=== PATIENT | female | born 1955 | race Caucasian/White ===

== ENCOUNTER 2016-09-05 09:12 | Inpatient (IN) ==
[2016-09-05] MEDS ORDERED: SODIUM CHLORIDE 0.9% 500 ML IV STA (09:42)
[2016-09-05] MEDS ORDERED: PANTOPRAZOLE 40 MG VIAL IV STA (09:42)
[2016-09-05] MEDS ORDERED: METOCLOPRAMIDE 10 MG/2 ML VIAL IV STA (09:42)
[2016-09-05] MEDS ORDERED: ONDANSETRON ODT 4 MG TABLET PO STA (09:42)
[2016-09-05] MEDS ORDERED: METOCLOPRAMIDE 10 MG/2 ML VIAL ONE (09:51)
[2016-09-05] MEDS ORDERED: ONDANSETRON ODT 4 MG TABLET PO ONE (09:51)
[2016-09-05] MEDS ORDERED: PANTOPRAZOLE 40 MG VIAL IV ONE (09:51)
[2016-09-05 09:53] LABS: Basophils % 0.3 % (0.0-0.8); Eosinophils # 0.1 10*3/uL (0.0-0.87); Eosinophils % 0.9 % (0.00-10.9); Hematocrit 37.9 VOL% (35.7-47.0); Hemoglobin 12.3 GM/DL (12.0-16.0); Immature Granulocytes % 0.5 %; Immature Granulocytes Absolute 0.04 #; Lymphocytes % 12.4 % (21.3-54.2); Mean Corpuscular HGB Conc 32.5 GM/DL (32-36); Mean Corpuscular Hemoglobin 28 PG (27-34); Mean Corpuscular Volume 85.7 FL (87-102); Mean Platelet Volume 9.1 FL (9.6-12.0); Monocytes # 0.7 10*3/uL (0.11-0.8); Monocytes % 8.8 % (1.7-12.7); Neutrophils # 6.2 10*3/uL (1.4-7.4); Neutrophils % 77.1 % (38.7-73.9); Platelet Count 147 T/CUMM (130-400); Red Blood Count 4.42 MC/CUMM (3.8-5.5); Red Cell Distribution Width 13.7 % (9.3-17.3)
--- NOTE | 2016-09-05 09:55 | Emergency Department Note ---
Arrival - Arrival Chief Complaint: Abdominal / Flank Pain Stated Complaint: SOB, ABD DISTENTION, EXTREME FATIGUE ED Nursing Triage Note: Pt from [facility] c/o feeling tired onset since June 28 - pt was seen and treated and dx with UTI in ER at that time - pt nurse states that she has not had any inprovement - pt started having some abd distention yesterday Mode of Arrival: Wheelchair Time Seen by Provider: 09/05/16 09:42 - History of Present Illness HPI Narrative: This 61-year-old white female presents from her care home with complaints of being profoundly fatigued and tired for the last 3 months. In that interim she was seen here for UTI and treated but this made no difference in her energy level. What precipitates the visit today is the patient has had abrupt and rapidly progressive abdominal distention associated with nausea but no chills, fever, bright red blood per rectum, melena, heartburn, belching, vomiting, diarrhea, or severe pain. The patient purportedly had a bowel movement as late as 2 days ago. History is limited to what the nurse can provide for although the patient is alert and oriented she has a diagnosis of intellectual delay yet no history of any CVA. Currently she appears very uncomfortable but in no medical distress. Onset (ago): month(s) (Patient presents 3 months after onset of symptoms) Date of Last Menstrual Period: hyster Allergies/Adverse Reactions: Allergies Allergy/AdvReac Type Severity Reaction Status Date / Time Sulfa (Sulfonamide Allergy HIVES Verified 06/28/16 10:01 Antibiotics) Home Medications: Home Medications Medication Instructions Recorded Confirmed Type ARIPiprazole [Abilify] 5 mg PO 1700 09/05/16 09/05/16 History Acetaminophen 325 - 650 mg PO Q4H PRN 09/05/16 09/05/16 History Aspirin EC Tab [place] [address]/05/16 09/05/16 History Bisoprol[place] [address]/05/16 09/05/16 History Calcium (Carb)/Vit D 500-200 1 tablet PO 0645,1700 09/05/16 09/05/16 History [Oscal 500 + D] Cholecalciferol (Vitamin D3) 5,000 unit PO 0645 09/05/16 09/05/16 History [Vitamin D3] Colesevelam [Welchol] 625 mg PO BID 09/05/16 09/05/16 History Diclofenac Sodium [Diclofenac 100 mg PO DAILY W/BREAKFAST 09/05/16 09/05/16 History Sodium ER] Diphenoxylate/Atrop 2.5-0.025 1 - 2 tablet PO TID 09/05/16 09/05/16 History [Lomotil Tab] Fluticasone 50 Mcg Nasal [place] 1 spray BOTH NARES 06 PRN 09/05/16 09/05/16 History [Flonase Nasal [place]] Latanoprost [Xalatan] 1 drop BOTH EYES 45 09/05/16 09/05/16 History Loperamide Cap [Imodium Cap] 2 mg PO QID PRN 09/05/16 09/05/16 History Loratadine Tab [Claritin Tab] 10 mg PO 45 PRN 09/05/16 09/05/16 History Methyl Salicylate/Menthol 118 ml TOP DAILY PRN 09/05/16 09/05/16 History [Salonpas Pain Relieving Foam] Moisturizing Cream (Eucerin) 1 applic TOP 0645,1700 09/05/16 09/05/16 History [Eucerin Cream] Omeprazole [Prilosec] 20 mg PO 45 09/05/16 09/05/16 History Ondansetron HCl 4 mg PO Q6H PRN 09/05/16 09/05/16 History Pramoxine 1% Rectal Foam 1 applic TOP TID PRN 09/05/16 09/05/16 History [Proctofoam 1% Foam] Triamcinolone 0.1% Cream [Kenalog 1 applic TOP 45 09/05/16 09/05/16 History 0.1% Cream] buPROPion HCl [Bupropion HCl Sr] 150 mg PO 45 09/05/16 09/05/16 History Review of System - Review of System 12 point system: reviewed and no additional remarkable complaints except as stated - Review of System Constitutional: Present: as per HPI Gastrointestinal: Present: as per HPI Medical,Surgical,& Family Hx - Medical History Cardio: History of: Hypertension, PVD, Cardiovascular Problems (murmur) Other: History of: Miscellaneous Medical Problems (Moderate intillectual delay) - Social History Smoking Status: Never smoker Frequency of Alcohol Use: None Type of Drug Use: None Exam Physical Examination: GENERAL: Elderly white female with obviously distended abdomen. HEENT: Normocephalic. No trauma. Moist mucous membranes. EOMI. PERRLA. ENT NML NECK: Supple. No adenopathy. CARDIAC: Regular. No murmurs. Heart rate 120 CHEST: Clear to auscultation. No respiratory distress. O2 sat 96% ABDOMEN: Distended and firm abdomen with diffuse mild discomfort but significant pain on palpation over the suprapubic area and left lower quadrant. Hypoactive bowel sounds noted . EXTREMITIES: No trauma. Normal ROM. No pedal edema. SKIN: No diaphoresis. No rash. NEURO: Alert. Oriented 3. Motor, sensory, vibratory intact. No focal deficits. Vital Signs: Vital Signs Temperature 98.6 F 09/05/16 13:35 Pulse Rate 80 09/05/16 13:35 Respiratory Rate 20 09/05/16 13:35 Blood Pressure 127/67 09/05/16 13:35 O2 Sat by Pulse Oximetry 97 09/05/16 13:35 Course - Reevaluation(s) Reevaluation #1: Discussed with the patient and her nurse the fact that it would appear she may have something blocking her: And the need for further evaluation treatment in the hospital. - Consultations Consultation #1: Discussed with the hospitalist service who will admit for further evaluation treatment. Results - Labs CBC & BMP: 09/05/16 09:51 09/05/16 09:51 Labs: I reviewed the laboratory and noted the low potassium as well as elevated lactic acid. - Impressions EKG: Sinus tachycardia at [address] interval and right bundle branch block. Nonspecific ST changes with no acute injury pattern noted. 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
[2016-09-05 09:57] LABS: Apearance,Urine CLEAR (Clear); Bilirubin,Urine Negative (Negative); Blood, Urine Negative (Negative); Glucose,Urine (UA) Negative (Negative); Ketones,Urine Negative (Negative); Mucus,Urine Few /LPF (Occasional); Nitrite,Urine Negative (Negative); Protein,Urine 100 MG/DL; RBC,Urine 1 /HPF (0-4); Squamous Epithelial Cell,Urine Occasional /HPF (0-10); Urine Color Amber (Yellow); Urine Specific Gravity 1.025 (1.001-1.035); WBC,Urine 5 /HPF (0-6)
--- NOTE | 2016-09-05 09:58 | XRay Report ---
History is abdominal pain Comparison 09/21/2011 The heart is mildly enlarged. Hilar contours unchanged. Density along the lower mediastinum on the right unchanged possibly a small hiatal hernia Chronic right rib fractures noted There are minimal stranding opacities in the left base similar on the prior study. No consolidation or pneumothorax seen Impression: 1. Mild cardiomegaly 2. Mild left basilar scarring PROCEDURE INTERPRETED AT [facility] DEPARTMENT OF RADIOLOGY Final Report Signed by: Dr. Haritha Green
[2016-09-05] MEDS ORDERED: cefTRIAXone 1,000 MG VIAL ONE (10:19)
[2016-09-05 10:22] LABS: Alanine Aminotransferase 15 U/L (13-56); Albumin 3.1 G/DL (3.4-5.0); Alkaline Phosphatase 30 U/L (45-117); Amylase 46 U/L (25-115); Aspartate Amino Transferase 11 U/L (0-37); Bilirubin,Total < 0.39 MG/DL (0.2-1.0); Blood Urea Nitrogen 13 MG/DL (7-18); Calcium 8.7 MG/DL (8.5-10.1); Free T4 (Free Thyroxine) 0.88 NG/DL (0.76-1.46); Glucose 143 MG/DL (74-106); Potassium 3.1 MMOL/L (3.5-5.1); Sodium 143 MMOL/L (136-145); Total Protein 6.1 G/DL (6.4-8.3); Troponin I Only < 0.015 NG/ML (0.00-0.045)
--- NOTE | 2016-09-05 11:16 | EKG Report ---
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
[2016-09-05] MEDS ORDERED: POTASSIUM BICARB EFFERVESCENT 25 MEQ TABLET PO ONE ×2 (11:22→11:35)
[2016-09-05 11:52] LABS: Lactic Acid 2.6 MMOL/L (0.4-2.0)
--- NOTE | 2016-09-05 12:35 | CT Report ---
History is abdominal distention. 100 cc Omnipaque 350 utilized. There is a tiny 5 mm cyst in the right lobe of the liver The there are all RS several up to 1.2 cm splenic hypodensities which are not simple cysts. There is a small right renal cyst. There is patchy inhomogeneous enhancement in the left kidney with minimal fullness left renal collecting system. There are just under 1 cm celiac nodes. There are several up to 1.0 cm periaortic nodes present. There is diffuse distention of the colon with air and fecal material. Minimal amounts of fluid and stranding present within both paracolic gutters. Pelvis: There is a transition from air-filled to a nondistended colon in the rectosigmoid region. Adjacent to this area there is a 4 cm area of eccentric mass effect with several smaller less than 2 cm fluid densities within it. There is stranding in the pelvic fat diffusely with stranding and minimal amounts of fluid in the presacral region. There are up to 1.7 cm left iliac nodes. There are multiple to 1.4 cm right iliac nodes. Mild areas of nodularity present in the fat surrounding the rectosigmoid colon. Impression: 1. Findings highly suspicious for a colon neoplasm in the rectosigmoid colon with diffuse colon distention and excessive fecal material proximal to this area. There are enlarged left greater than right iliac nodes and nodular opacities and surrounding fat as well. 2. nonspecific mildly enlarged retroperitoneal nodes 3. Several nonspecific splenic hypodensities are not simple cysts. Metastatic disease would have to be considered. 4. Suspected low grade obstruction of the distal left ureter versus pyelonephritis on the left The CT exam was performed using one or more of the following dose reduction techniques: Automated exposure control, adjustment of the mA and/or kV according to patient size, or use of iterative reconstruction technique. PROCEDURE INTERPRETED AT [facility] DEPARTMENT OF RADIOLOGY Final Report Signed by: Dr. Haritha Green
[2016-09-05] MEDS ORDERED: ONDANSETRON 4 MG/2 ML VIAL IV PRN ×2 (14:06→21:01)
[2016-09-05] MEDS ORDERED: ACETAMINOPHEN 325 MG TABLET PO PRN (14:06)
[2016-09-05] MEDS ORDERED: GLUCAGON 1 MG VIAL IM PRN (14:09)
[2016-09-05] MEDS ORDERED: DEXTROSE 50% 25 GM/50 ML VIAL IV PRN (14:09)
[2016-09-05] MEDS ORDERED: POTASSIUM CHLORIDE 20 MEQ TABLET PO PRN (14:10)
--- NOTE | 2016-09-05 14:21 | Hospitalist History & Physical ---
<Ash Valdez - Last Filed: 09/05/16 17:55> Assessment and Plan (1) Abdominal pain Status: Acute Assessment and plan: Consult GI. NPO. IV fluid hydration. prn pain medication. Current Visit: Yes (2) Diabetes Status: Acute Assessment and plan: Accu-Cheks before meals at bedtime. Sliding scale insulin. Hemoglobin A1c. Current Visit: Yes (3) Hypertension Status: Chronic Assessment and plan: Pt. stable now. Current Visit: Yes (4) High cholesterol Status: Chronic Assessment and plan: Lipid panel in a.m. Current Visit: Yes (5) Hiatal hernia Status: Chronic Current Visit: Yes (6) Garcia's esophagus Status: Chronic Current Visit: Yes (7) Chronic colitis Status: Chronic Current Visit: Yes (8) Depression Status: Chronic Current Visit: Yes History of Present Illness Chief complaint: abdominal pain History of present illness: Ms. Odom is a 61 year old white female with a history of hypertension, depression, high cholesterol, diabetes, Garcia's esophagus, chronic colitis that was brought in from the [facility] for evaluation of abdominal pain. Pt is alert but is intellectually delayed. Pt. is escorted by [facility] RN who provides the history for patient. Pt's escort adds that the patient has been complaining of excessive fatigue for the last 3 months. Pt.'s escort reported that the patient had a rapidly progressive distention of the abdomen. She states that the patient complained of abdominal pain yesterday and that her stomach was slightly bloated but this morning it was very enlarged. She also reports that the patient had a small amount of clear jellylike stool since Wednesday. Pt. denies fever, chills, blood per rectum, hematuria, blood in stool or any other complaints at this time in the ED. CT reveals 'findings that are highly suspicious for colon neoplasm of the rectosigmoid colon with diffuse colon distention and excessive fecal matter proximal to this area'. Patient also had 'enlarged left greater than right iliac nodes and nodular opacities and surrounding fat'. Patient will be admitted to the hospitalist service for further evaluation and treatment. GI will be consulted to see the patient. Home Medications Medication Instructions Recorded Confirmed Type ARIPiprazole [Abilify] 5 mg PO 1700 09/05/16 09/05/16 History Acetaminophen 325 - 650 mg PO Q4H PRN 09/05/16 09/05/16 History Aspirin EC Tab 325 mg PO 45 09/05/16 09/05/16 History Bisoprolol Fumarate 5 mg PO 45 09/05/16 09/05/16 History Calcium (Carb)/Vit D 500-200 1 tablet PO 0645,1700 09/05/16 09/05/16 History [Oscal 500 + D] Cholecalciferol (Vitamin D3) 5,[place] [address]/05/16 09/05/16 History [Vitamin D3] Colesevelam [Welchol] 625 mg PO BID 09/05/16 09/05/16 History Diclofenac Sodium [Diclofenac 100 mg PO DAILY W/BREAKFAST 09/05/16 09/05/16 History Sodium ER] Diphenoxylate/Atrop 2.5-0.025 1 - 2 tablet PO TID 09/05/16 09/05/16 History [Lomotil Tab] Fluticasone 50 Mcg Nasal [place] 1 spray BOTH NARES 644 PRN 09/05/16 09/05/16 History [Flonase Nasal [place]] Latanoprost [Xalatan] 1 drop BOTH EYES 45 09/05/16 09/05/16 History Loperamide Cap [Imodium Cap] 2 mg PO QID PRN 09/05/16 09/05/16 History Loratadine Tab [Claritin Tab] 10 mg PO 45 PRN 09/05/16 09/05/16 History Methyl Salicylate/Menthol 118 ml TOP DAILY PRN 09/05/16 09/05/16 History [Salonpas Pain Relieving Foam] Moisturizing Cream (Eucerin) 1 applic TOP 45,0 09/05/16 09/05/16 History [Eucerin Cream] Omeprazole [Prilosec] 20 mg PO 45 09/05/16 09/05/16 History Ondansetron HCl 4 mg PO Q6H PRN 09/05/16 09/05/16 History Pramoxine 1% Rectal Foam 1 applic TOP TID PRN 09/05/16 09/05/16 History [Proctofoam 1% Foam] Triamcinolone 0.1% Cream [Kenalog 1 applic TOP 45 09/05/16 09/05/16 History 0.1% Cream] buPROPion HCl [Bupropion HCl Sr] 150 mg PO 0645 09/05/16 09/05/16 History Allergies Allergy/AdvReac Type Severity Reaction Status Date / Time Sulfa (Sulfonamide Allergy HIVES Verified 06/28/16 10:01 Antibiotics) Medical,Surgical,& Family Hx - Medical History Cardio: History of: Hypertension, PVD, Cardiovascular Problems (murmur) Other: History of: Miscellaneous Medical Problems (Moderate intillectual delay) - Social History Smoking Status: Never smoker Frequency of Alcohol Use: None Type of Drug Use: None Marital Status: Single 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 Absent: chills, fever(s) - EENT Eyes: Absent: blurry vision Ears: Absent: decreased hearing - Cardiovascular Cardiovascular: Absent: chest pain at rest, edema - Respiratory Respiratory: Present: dyspnea on exertion - Gastrointestinal Gastrointestinal: Present: abdominal pain, change in bowel habits. Absent: nausea, vomiting - Genitourinary Genitourinary: Absent: difficulty urinating - Musculoskeletal Musculoskeletal: Absent: limited range of motion - Neurological Neurological: Absent: confusion, dizziness - Psychiatric Psychiatric: Present: anxiety, depression Exam - Constitutional Vitals: Period Temp Pulse Resp BP Sys/Harvey Pulse Ox Last 24 Hr 98.1 F-98.6 F 80-122 16-20 127-168/67-115 96-100 General appearance: no acute distress, over weight - Head Head exam: Present: normal inspection, normocephalic - Eye Eye exam: Present: EOMI. Absent: periorbital swelling Pupils: Present: MARANDA. Absent: dilated - Respiratory Respiratory exam: Present: clear to auscultation bilaterally. Absent: wheezes - Cardiovascular Cardiovascular exam: Present: regular rate and rhythm - GI/Abdominal GI/Abdominal exam: Present: distended, firm, hypoactive bowel sounds, tenderness - Extremities Exam Extremities exam: Present: normal capillary refill, full ROM. Absent: edema - Neurological Exam Neurological exam: Present: alert, oriented X3 - Psychiatric Psychiatric exam: Present: normal affect, normal mood - Skin Skin exam: Present: normal color, warm, dry Results - Labs CBC & BMP: 09/05/16 09:51 09/05/16 17:24 Lab Results: I have reviewed the past 24 hour labs <[email or web address] - Last Filed: 09/06/16 07:36> History of Present Illness History of present illness: Patient seen and examined independently of GERIATRIC NURSING ASSISTANT Valdez, agree with assessment and plan as documented. 61 y/o WF presents with abdominal pain and acute abdominal distention. Patient denies nausea. Patient's medical scientific officer reports multiple colonoscopies over the last few years, performed at [place]. Requested records. On exam abdomen is distended and diffusely tender, no rebound or guarding. CT with concern for neoplasm and obstruction. GI and Surgery consulted. Patient to surgery tonight. Exam - Constitutional Vitals: Period Temp Pulse Resp BP Sys/Harvey Pulse Ox Last 24 Hr 97 F-98.6 F 80-122 12-20 86-171/55-115 94-100 Results - Labs CBC & BMP: 09/06/16 06:24 09/06/16 06:24
[2016-09-05] MEDS ORDERED: SODIUM CHLORIDE 0.9% 1,000 ML IV SCH (14:30)
--- NOTE | 2016-09-05 15:29 | Gastrointestinal Consult Note ---
Assessment and Plan - Time spent with patient Time spent with patient: Greater than 30 minutes (1) Colonic obstruction Status: Acute Current Visit: Yes (2) Other specified counseling Status: Acute Current Visit: Yes History of Present Illness History of present illness: Ms. Odom is a 61 year old female Home Medications Medication Instructions Recorded Confirmed Type ARIPiprazole [Abilify] 5 mg PO 1700 09/05/16 09/05/16 History Acetaminophen 325 - 650 mg PO Q4H PRN 09/05/16 09/05/16 History Aspirin EC Tab 325 mg PO 45 09/05/16 09/05/16 History Bisoprolol Fumarate 5 mg PO 45 09/05/16 09/05/16 History Calcium (Carb)/Vit D 500-200 1 tablet PO 45,0 09/05/16 09/05/16 History [Oscal 500 + D] Cholecalciferol (Vitamin D3) 5,000 unit PO 45 09/05/16 09/05/16 History [Vitamin D3] Colesevelam [Welchol] 625 mg PO BID 09/05/16 09/05/16 History Diclofenac Sodium [Diclofenac 100 mg PO DAILY W/BREAKFAST 09/05/16 09/05/16 History Sodium ER] Diphenoxylate/Atrop 2.5-0.025 1 - 2 tablet PO TID 09/05/16 09/05/16 History [Lomotil Tab] Fluticasone 50 Mcg Nasal [place] 1 spray BOTH NARES 644 PRN 09/05/16 09/05/16 History [Flonase Nasal [place]] Latanoprost [Xalatan] 1 drop BOTH EYES 45 09/05/16 09/05/16 History Loperamide Cap [Imodium Cap] 2 mg PO QID PRN 09/05/16 09/05/16 History Loratadine Tab [Claritin Tab] 10 mg PO 45 PRN 09/05/16 09/05/16 History Methyl Salicylate/Menthol 118 ml TOP DAILY PRN 09/05/16 09/05/16 History [Salonpas Pain Relieving Foam] Moisturizing Cream (Eucerin) 1 applic TOP 0645,1700 09/05/16 09/05/16 History [Eucerin Cream] Omeprazole [Prilosec] 20 mg PO 45 09/05/16 09/05/16 History Ondansetron HCl 4 mg PO Q6H PRN 09/05/16 09/05/16 History Pramoxine 1% Rectal Foam 1 applic TOP TID PRN 09/05/16 09/05/16 History [Proctofoam 1% Foam] Triamcinolone 0.1% Cream [Kenalog 1 applic TOP 64409/05/16 09/05/16 History 0.1% Cream] buPROPion HCl [Bupropion HCl Sr] [place] [address]/05/16 09/05/16 History Allergies Allergy/AdvReac Type Severity Reaction Status Date / Time Sulfa (Sulfonamide Allergy HIVES Verified 06/28/16 10:01 Antibiotics) Medical,Surgical,& Family Hx - Medical History Cardio: History of: Hypertension, PVD, Cardiovascular Problems (murmur) Other: History of: Miscellaneous Medical Problems (Moderate intillectual delay) - Social History Smoking Status: Never smoker Frequency of Alcohol Use: None Type of Drug Use: None Exam - Constitutional Vitals: Period Temp Pulse Resp BP Sys/Harvey Pulse Ox Last 24 Hr 98.1 F-98.6 F 80-122 16-20 127-168/67-115 96-100 Results - Labs CBC & BMP: 09/05/16 09:51 09/05/16 09:51 Note Addendum: PLEASE NOTE -- automatic citation of patient information is unavoidable in this electronic note. I have made a reasonable effort to review the information cited , but it is not a part of my evaluation, impression, or recommendation unless specifically discussed in the dictated text that follows. As well, voice recognition software was used in the creation of this clinical note. Reasonable effort was made to identify and correct gross errors. Despite proofreading, errors in non destructive testing specialist may be present, including nonsense verbiage at times. If you encounter such an error, please contact me at for discussion and correction. -- Fidel Chief complaint: abdominal pain, abnormal radiology History of present illness: This is a new patient, a 61-year-old female seen by consultation for evaluation of abdominal pain. The patient is admitted to the hospitalist service under the care of Dr. Nina with a primary diagnosis of same. The patient was admitted through the emergency department this morning with primary complaint of progressive abdominal distention with nausea and associated abdominal pain. Evaluation at that time revealed mildly elevated lactate but otherwise relatively normal laboratory values and abnormal CT scan with evidence of colonic malignancy. The patient has been started on crystalloid resuscitation along with nausea control. The patient is accompanied by a caregiver provides the majority of the history. She that symptoms began yesterday with acutely progressive abdominal distention, associated abdominal pain, and nausea. This was at its worst own presentation to the emergency department this morning. Distention is still pronounced but may be subjectively better at the moment. The patient generally suffers from chronic diarrhea and requires antidiarrheal medication to control same. Her primary agricultural education instructor is down at [facility] and, by report, the patient has had upper endoscopy in 2014 and colonoscopy, also possibly in 2014. Her caregiver is unaware of the results of the colonoscopy. The patient's mother did have colorectal cancer but we do not know at what age. Patient denies rigors, headache, dizziness, neck pain, visual changes, redness of the eyes, dysphagia, odynophagia, difficulty chewing, chest pain, shortness of breath, weight loss, vomiting, regurgitation, hematemesis, diarrhea, hematochezia, melena, proctalgia, constipation, dysuria, skin changes, temperature regulation issues, flushing, easy bleeding/bruising, mental status change, numbness/weakness in the extremities, yellowing of the eyes/skin, cutaneous eruptions, and other complaints in general. Review of systems: 12 point review of systems was negative except as documented above. Outpatient medications: bupropion, [place] phone, Zofran, Prilosec, Claritin, Imodium, latanoprost, [place] some nasal spray, Lomotil, diclofenac, well call, vitamin D3, calcium with vitamin D, bisoprolol, aspirin, Abilify Inpatient medications: Tylenol, [place], Humalog, Zofran, potassium chloride, normal saline infusion Past Medical History: hypertension, peripheral vascular disease, moderate intellectual delay Social history: negative tobacco. Negative alcohol Family history: mother with colorectal cancer at unknown age Physical examination: Vital Signs: Current vital signs reviewed and documented above. General Appearance: lying in bed. Uncomfortable. Head: Normocephalic. Neck: Palpation of the neck revealed no abnormalities. Eyes: No scleral icterus. No scleral injection. No conjunctival pallor. Oral Cavity: Odor of breath was normal. No drooling was observed. Lips showed no abnormalities. Floor of the mouth showed no abnormalities. Pharynx: Oropharynx was normal. Lungs: Respiration rhythm and depth was normal. Cardiovascular: Heart rate was tachycardic but rhythm wants normal. Abdomen: abdomen was distended and tense. Abdominal palpation revealed mild diffuse tenderness without guarding. Ascites was not discovered. Abdominal auscultation revealed positive bowel sounds that were not high-pitched. Musculoskeletal System: Musculoskeletal system was grossly normal. Neurological: level of consciousness was normal. Speech was normal. Affect was consistent with the reported medical delay. Intellectual Skin: General appearance was normal. Color and pigmentation were normal. No skin lesions. Laboratory: white blood count 8.0, hemoglobin 12.3, hematocrit 37.9, platelets 147, ALT 15, AST 11, bilirubin 0.4, alkaline phosphatase 30, lactate 2.6, amylase 46, lipase 140 Radiology: CT of the abdomen and pelvis, September 05, 2016 -- suspicious for a: neoplasm in the rectal sigmoid colon with diffuse distention and excessive fecal material proximally; enlarged. Nodes and nodular opacities in the surrounding fat; enlarged retroperitoneal nodes; splenic hypo densities not consistent with simple cysts; suspected low-grade obstruction of the distal left ureter Impressions: 1. Colonic obstruction -- findings are consistent with acute obstruction, likely in the left colon. Images do not have the typical radiologic appearance of volvulus, neither does the radiologist report volvulus. Rather, this has the appearance of malignancy. The patient should be NPO at present. Nasogastric decompression could make some positive difference but is less effective than with small bowel obstruction. Some consideration could be given to flexible sigmoidoscopy with attempted stent placement but this is also less effective and higher risk than primary operative intervention. We have consulted general surgery for evaluation and we will follow up with further recommendations pending the outcom of that consultation. 2. Other specified counseling -- The patient was seen for greater than 30 minutes. The patient was counseled for greater than 50% of this time regarding differential diagnosis, likely diagnosis, diagnostic and therapeutic alternatives, risks/benefits/alternatives of medications and procedures, and plan of care generally. The patient expressed understanding and wishes to proceed. Recommendations: -- continued supportive care -- initiate broad-spectrum antibiotic -- consider nasogastric decompression -- nothing by mouth -- general surgery consultation -- thank you for consultation. We will follow with you.
[2016-09-05] MEDS ORDERED: MORPHINE 2 MG/1 ML SYRINGE IV PRN (16:01)
--- NOTE | 2016-09-05 16:37 | General Surgery Consult Note ---
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 This is probably going to be something that is unresectable locally at this time or at least would require an extensive abdominal resection and consultation with urology but I think the best thing to do would be to try to get a tissue diagnosis and also a diverting colostomy and this will be done today with rigid proctoscopy with biopsy of the mass and if for some reason no masses seen and is easily to traverse this area we can hold off on doing a colostomy and just try to place a rectal stent but if the suspicion is confirmed by the proctoscopy and the patient has a malignancy we will do biopsies and go ahead and do a diverting loop colostomy proximal to this through midline incision. This was all discussed with the patient's legal guardian and we will go ahead and proceed today. An NG tube will be placed because there is quite a bit of fluid in the stomach on her CT scan and this will help prevent aspiration with induction. Current Visit: Yes History of Present Illness Chief complaint: Large bowel obstruction History of present illness: Ms. Odom is a 61 year old female admitted with a large bowel obstruction. Per the alf the patient had a colonoscopy within the last 5 years that was reportedly normal. This was done at [facility] by Dr. Morrell. The patient has a very redundant sigmoid colon so is definitely a set up for a sigmoid volvulus intermittently as well. There is no obvious evidence of diverticulitis but there is some obstruction mildly of her left ureter with hydroma side where the mass is protruding out of the colon at the rectosigmoid junction. CT scan also shows some hypodensities in the spleen which could be malignancy. There is some iliac lymphadenopathy worse on the left side. The patient has had a prior hysterectomy and has a large midline incision. Home Medications Medication Instructions Recorded Confirmed Type ARIPiprazole [Abilify] 5 mg PO 1700 09/05/16 09/05/16 History Acetaminophen 325 - 650 mg PO Q4H PRN 09/05/16 09/05/16 History Aspirin EC Tab 325 mg PO 0645 09/05/16 09/05/16 History Bisoprolol Fumarate 5 mg PO 0609/05/16 09/05/16 History Calcium (Carb)/Vit D 500-200 1 tablet PO 0645,1700 09/05/16 09/05/16 History [Oscal 500 + D] Cholecalciferol (Vitamin D3) 5,000 unit PO 45 09/05/16 09/05/16 History [Vitamin D3] Colesevelam [Welchol] 625 mg PO BID 09/05/16 09/05/16 History Diclofenac Sodium [Diclofenac 100 mg PO DAILY W/BREAKFAST 09/05/16 09/05/16 History Sodium ER] Diphenoxylate/Atrop 2.5-0.025 1 - 2 tablet PO TID 09/05/16 09/05/16 History [Lomotil Tab] Fluticasone 50 Mcg Nasal [place] 1 spray BOTH NARES 644 PRN 09/05/16 09/05/16 History [Flonase Nasal [place]] Latanoprost [Xalatan] 1 drop BOTH EYES 0645 09/05/16 09/05/16 History Loperamide Cap [Imodium Cap] 2 mg PO QID PRN 09/05/16 09/05/16 History Loratadine Tab [Claritin Tab] 10 mg PO 45 PRN 09/05/16 09/05/16 History Methyl Salicylate/Menthol 118 ml TOP DAILY PRN 09/05/16 09/05/16 History [Salonpas Pain Relieving Foam] Moisturizing Cream (Eucerin) 1 applic TOP 0645,1700 09/05/16 09/05/16 History [Eucerin Cream] Omeprazole [Prilosec] 20 mg PO 0645 09/05/16 09/05/16 History Ondansetron HCl 4 mg PO Q6H PRN 09/05/16 09/05/16 History Pramoxine 1% Rectal Foam 1 applic TOP TID PRN 09/05/16 09/05/16 History [Proctofoam 1% Foam] Triamcinolone 0.1% Cream [Kenalog 1 applic TOP 45 09/05/16 09/05/16 History 0.1% Cream] buPROPion HCl [Bupropion HCl Sr] 150 mg PO 0645 09/05/16 09/05/16 History Allergies Allergy/AdvReac Type Severity Reaction Status Date / Time Sulfa (Sulfonamide Allergy HIVES Verified 04/02/17 10:01 Antibiotics) Medical,Surgical,& Family Hx - Medical History Cardio: History of: Hypertension, PVD, Cardiovascular Problems (murmur) Other: History of: Miscellaneous Medical Problems (Moderate intillectual delay) - Social History Smoking Status: Never smoker Frequency of Alcohol Use: None Type of Drug Use: None - Constitutional Constitutional: Present: as per HPI - EENT Nose, mouth and throat: Present: as per HPI - Cardiovascular Cardiovascular: Present: as per HPI - Respiratory Respiratory: Present: as per HPI - Gastrointestinal Gastrointestinal: Present: as per HPI - Genitourinary Genitourinary: Present: as per HPI - Musculoskeletal Musculoskeletal: Present: as per HPI - Neurological Neurological: Present: as per HPI - Endocrine Endocrine: Present: as per HPI Hematologic/Lymphatic: Present: as per HPI Exam - Constitutional Vitals: Period Temp Pulse Resp BP Sys/Harvey Pulse Ox Last 24 Hr 98.1 F-98.6 F 80-122 16-20 127-168/67-115 96-100 General appearance: no acute distress, over weight - Head Head exam: Present: normal inspection, normocephalic - Eye Eye exam: Present: EOMI Pupils: Present: MARANDA - ENT ENT exam: Present: normal exam Mouth exam: Present: normal external inspection, normal voice - Neck Neck exam: Present: normal inspection, trachea midline - Respiratory Respiratory exam: Present: clear to auscultation bilaterally. Absent: accessory muscle use, chest wall tenderness - Cardiovascular Cardiovascular exam: Present: tachycardia. Absent: irregular rhythm - GI/Abdominal GI/Abdominal exam: Present: distended, soft - Extremities Exam Extremities exam: Present: normal inspection, normal capillary refill - Neurological Exam Neurological exam: Present: alert, oriented X3 Speech: Present: normal - Skin Skin exam: Present: normal color, warm Results - Labs CBC & BMP: 09/05/16 09:51 09/05/16 09:51 - Diagnostic Findings Procedure: CT Abdomen and Pelvis: image reviewed by me, report reviewed by me ( large bowel obstruction of colon)
[2016-09-05] MEDS: INSULIN LISPRO 100 UNIT/ML SUBCUT SCH ×2 (17:22→22:32)
[2016-09-05] MEDS ORDERED: PHENYLEPHRINE 50 MG/5 ML VIAL ONE (17:51)
[2016-09-05] MEDS ORDERED: LIDOCAINE 2% 5 ML VIAL ONE (17:51)
[2016-09-05] MEDS ORDERED: SUCCINYLCHOLINE 200 MG/10 ML VIAL ONE (17:51)
[2016-09-05] MEDS ORDERED: ROCURONIUM 100 MG/10 ML VIAL IV ONE (17:51)
[2016-09-05] MEDS ORDERED: PROPOFOL 200 MG/20 ML VIAL IV ONE (17:51)
[2016-09-05] MEDS ORDERED: ESMOLOL 100 MG/10 ML VIAL IV ONE (17:51)
[2016-09-05] MEDS ORDERED: PHENYLEPHRINE 1 MG/10 ML SYRINGE IV ONE (17:51)
[2016-09-05 19:34] LABS: Apearance,Urine CLEAR (Clear); Bilirubin,Urine Negative (Negative); Blood, Urine Negative (Negative); Glucose,Urine (UA) Negative (Negative); Ketones,Urine Negative (Negative); Mucus,Urine Occasional /LPF (Occasional); Nitrite,Urine Negative (Negative); Protein,Urine 30 MG/DL; RBC,Urine 4 /HPF (0-4); Squamous Epithelial Cell,Urine Occasional /HPF (0-10); Urine Color Yellow (Yellow); Urine Specific Gravity > 1.060 (1.001-1.035); Urine Urobilinogen < 2.0 EU/DL (0.2-1.0); WBC,Urine 1 /HPF (0-6)
[2016-09-05] MEDS ORDERED: PROMETHAZINE 25 MG/1 ML VIAL IM PRN (21:01)
[2016-09-05] MEDS ORDERED: METHYL SALICYLATE TOP PRN (21:01)
[2016-09-05] MEDS ORDERED: PRAMOXINE 1% RECTAL FOAM 15 GM CAN TOP PRN (21:01)
[2016-09-05] MEDS ORDERED: PROPOFOL 1,000 MG/100 ML BOTTLE IV SCH (21:01)
[2016-09-05] MEDS ORDERED: MENTHOL TOP PRN (21:01)
--- NOTE | 2016-09-05 21:05 | Operative Note ---
Date of procedure: 09/05/16 Pre-op diagnosis: Large bowel obstruction Post-op diagnosis: same (Large bowel obstruction with ischemic colon) Procedure: Preoperative diagnosis Large bowel obstruction Postoperative diagnosis Large bowel obstruction with colonic ischemia Procedures performed 1. Rectal exam under anesthesia with rigid proctoscopy 2. Exploratory laparotomy 3. Complete abdominal lysis of adhesions 4. Total abdominal colectomy with end ileostomy and sigmoid colon mucous fistula 5. Mobilization of the splenic flexure of the colon Findings Rectal exam under anesthesia revealed a firm mass forming lesion which was fixed in the pelvis at about 10 cm and the rigid proctoscope was unable to traverse the lesion. It was unclear if the rectum was twisted because of the lesion or rather the rectosigmoid junction but I was unable to traverse the narrowed area of the rectum with a proctoscope due to the size of the proctoscope and I was also unable to see any mucosal lesions at the level of the obstruction but I could biopsy. Laparotomy was then performed which actually revealed colonic ischemia with near perforation and massive distention of the ascending and transverse colon as well as ischemic changes in the sigmoid colon. There was serosal tearing of the ascending, transverse, and sigmoid colon due to massive distention and ischemic changes. This required total abdominal colectomy with end ileostomy and distal sigmoid colon/proximal rectum mucous fistula for treatment. There was a large piece of preperitoneal mesh that was divided to gain access the abdominal cavity and because of this and prior surgery there were extensive intra-abdominal adhesions that required complete abdominal adhesio lysis. A firm mass forming lesion was noted in the pelvis on laparotomy but there is no easy mass that could be accessed for biopsy and the risk of biopsy and further dissection in this matted pelvic mass felt like it was too risky to justify the benefit to be obtained. A #10 PARKER drain was placed in the pelvis and right paracolic gutter. Complications None apparent Specimen Total abdominal colectomy Blood loss 300 mL Anesthesia GETA Indications Large bowel obstruction with significant abdominal distention and mass on CT scan in the rectum. Description of procedure The patient was taken to the operating room and transferred to the operating table in the supine position. Pressure points were padded and SCDs placed to bilateral lower extremities. General endotracheal anesthesia was administered. The patient was placed in lithotomy position and a Morgan catheter was placed sterilely with concentrated urine output. A timeout was performed and rectal exam under anesthesia was administered. There was a mass in firm area at the tip of my finger on exam and I can feel a severely narrowed area in the rectum at this location but there is no mucosal mass I could feel. It was more of an extrinsic mass compressing this area of the rectum. I attempted a rigid proctoscopy however I was unable to traverse this narrowing and it did not look like a sigmoid volvulus but also was unable to see a mucosal based lesion that I can biopsy. It seems most likely that the rectum was fixed here possibly twisted on itself because of a mass that might be higher up in the rectum where the rectosigmoid consistent with CT scan findings. At this point we took out the proctoscope and place the patient back in the supine position. The abdomen was then prepped chlorhexidine and draped sterilely. New gown and gloves were put on and a timeout was recalled. Preoperative antibiotics were administered. A midline laparotomy incision was made with a scalpel. Electrocautery was used into the abdominal cavity and we encountered here a large piece of preperitoneal permanent mesh which look like polypropylene mesh and Prolene sutures that were holding in place. The Prolene sutures were divided as was the mesh and there were extensive intra-abdominal adhesions and a massively distended colon with ischemic changes on initial entry into the abdominal cavity. There were also some small bowel loops that were stuck to the midline fascia and mesh in the lysis of adhesions was performed with complete abdominal adhesio lysis. The colon was massively distended and had ischemic changes in the transverse and ascending colon with serosal tearing and massive distention near perforation. The sigmoid colon was also ischemic and there was serosal tearing and distention of this area of the colon as well. I was able to palpate a firm matted area in the pelvis that was not easily accessible to biopsy of anything that could be easily seen. The risk of biopsy did not justify any benefit that would be obtained in this acutely ill patient. Once the colon was completely mobilized including mobilization of the splenic flexure using electrocautery and the lesser sac was entered the terminal ileum was divided with a OSCAR stapler and a LigaSure device was used to divide the mesentery starting at the terminal ileum and coming all around the total abdominal colon. The distal transection point was made on a piece of distal sigmoid colon/proximal rectum at the rectosigmoid junction that appeared viable and would still reach the abdominal wall for mucous fistula and the bowel was divided here with a OSCAR stapler as well. I actually had to decompress the colon in order to adequately expose the splenic flexure for mobilization in this area was decompressed with a Bovie electrocautery and then suction was placed into the colon to remove air and stool. This was then sewn up with a pursestring 3-0 Vicryl suture. The bowel was then actually divided at the mid transverse colon and in order to assist with exposure and the remainder of the colon was removed after the mesentery was divided. The abdomen was irrigated with 2 L of saline and this was all suctioned out. Neither ureter was seen but the bowel was divided high on the mesentery just underneath the bowel wall to prevent injury. I again inspected the pelvic area but there was no obvious discrete mass just a very matted firmness to this region and there is nothing obviously could be biopsied safely so this was left alone. The specimen was passed off to pathology. A #10 PARKER drain was placed in the pelvis and right paracolic gutter and exited through the left lower quadrant. The ostomy site and the mucous fistula site were then prepared. A ass[place] and sioux of skin was removed on both lower quadrants of the abdomen and the abdominal wall fascia was exposed bilaterally. Cruciate incisions were made in both abdominal wall fascia on the lower quadrants of the abdomen. The tracts were dilated and the terminal ileum was delivered into the right lower quadrant wound and the sigmoid colon into the left lower quadrant wound. Both reached easily with no tension. The abdomen was then closed in the midline with #1 PDS sutures. The skin incisions were closed with skin clips and the PARKER drain was sewn in with nylon sutures. The wound was then covered and the ostomy and mucous fistula were matured by dividing the staple line and a Alisa ileostomy was performed in the right lower quadrant with the skin level colostomy mucous fistula in the left lower quadrant. Ostomy appliances were placed and the patient was left intubated and transferred to the ICU with her Morgan in place an NG tube which was checked during the operation and was in the appropriate position in the stomach. It is noted that she did not make much urine at all during the operation and received 2 L of lactated Ringer's during surgery. Postoperative plan Continue resuscitation in ICU Implants: #10 PARKER drain Anesthesia: GETA Surgeon / Physician: Travis Lee Estimated blood loss: other (300 mL) Specimens: other (total abdominal colectomy) Condition: stable Disposition: PACU Results - Labs CBC & BMP: 09/05/16 09:51 09/05/16 17:24 Discharge Plan - Discharge Medications No Action Acetaminophen 325 - 650 mg PO Q4H PRN PRN Reason: ARTHRITIS PAIN Ondansetron HCl 4 mg PO Q6H PRN PRN Reason: Nausea/Vomiting Cholecalciferol (Vitamin D3) [Vitamin D3] 5,000 unit PO 0645 Diclofenac Sodium [Diclofenac Sodium ER] 100 mg PO DAILY W/BREAKFAST Colesevelam [Welchol] 625 mg PO BID Diphenoxylate/Atrop 2.5-0.025 [Lomotil Tab] 1 - 2 tablet PO TID Latanoprost [Xalatan] 1 drop BOTH EYES 0645 buPROPion HCl [Bupropion HCl Sr] 150 mg PO 0645 Triamcinolone 0.1% Cream [Kenalog 0.1% Cream] 1 applic TOP 0645 Calcium (Carb)/Vit D 500-200 [Oscal 500 + D] 1 tablet PO 0645,1700 Bisoprolol Fumarate 5 mg PO 0645 Omeprazole [Prilosec] 20 mg PO 0645 Loratadine Tab [Claritin Tab] 10 mg PO 0645 PRN PRN Reason: Allergy Symptoms Fluticasone 50 Mcg Nasal [place] [Flonase Nasal Wesley] 1 spray BOTH NARES 0645 PRN PRN Reason: Allergy Symptoms Aspirin EC Tab 325 mg PO 0645 Moisturizing Cream (Eucerin) [Eucerin Cream] 1 applic TOP 0645,1700 ARIPiprazole [Abilify] 5 mg PO 1700 Loperamide Cap [Imodium Cap] 2 mg PO QID PRN PRN Reason: Diarrhea Pramoxine 1% Rectal Foam [Proctofoam 1% Foam] 1 applic TOP TID PRN PRN Reason: Hemorrhoids Methyl Salicylate/Menthol [Salonpas Pain Relieving Foam] 118 ml TOP DAILY PRN PRN Reason: Pain - Follow Up or Referral - Forms/Instructions
[2016-09-05] MEDS ORDERED: ALBUMIN 5% 25 GM in PREMIX 1 EACH IV ONE (21:09)
[2016-09-05] MEDS ORDERED: SEVOFLURANE 1 UNIT/15 MINUTE INH ONE (21:20)
[2016-09-05] MEDS ORDERED: MIDAZOLAM 2 MG/2 ML VIAL ONE (21:20)
[2016-09-05] MEDS ORDERED: LACTATED RINGERS 2,000 ML IV ONE (21:20)
[2016-09-05 21:34] LABS: Basophils % 0.1 % (0.0-0.8); Eosinophils % 0.4 % (0.00-10.9); Hematocrit 37.2 VOL% (35.7-47.0); Hemoglobin 12.6 GM/DL (12.0-16.0); Immature Granulocytes % 0.6 %; Immature Granulocytes Absolute 0.06 #; Lymphocytes # 1.4 10*3/uL (1.4-4.0); Lymphocytes % 12.9 % (21.3-54.2); Mean Corpuscular HGB Conc 33.9 GM/DL (32-36); Mean Corpuscular Hemoglobin 28 PG (27-34); Mean Corpuscular Volume 82.7 FL (87-102); Monocytes # 0.8 10*3/uL (0.11-0.8); Monocytes % 7.3 % (1.7-12.7); Neutrophils # 8.3 10*3/uL (1.4-7.4); Neutrophils % 78.7 % (38.7-73.9); Platelet Count 165 T/CUMM (130-400); Red Cell Distribution Width 13.6 % (9.3-17.3); White Blood Count 10.5 T/CUMM (4-12)
[2016-09-05 21:34] LABS: ABG Base Excess 2.1 MMOL/L (-2.5-2.5); ABG HCO3 24.1 MMOL/L (20-26); ABG Oxygen Saturation 98.5 % (95-100); ABG PCO2 29.8 MM HG (35-48); ABG PH 7.526 (7.35-7.45); Allen Test Positive; Pt O2 Delivery Device Ventilator
[2016-09-05 21:45] LABS: Partial Thromboplastin Time < 21.0 SECS (0-40)
[2016-09-05 21:48] LABS: Calcium 8.1 MG/DL (8.5-10.1); Magnesium 1.4 MG/DL (1.8-2.4); Potassium 4.2 MMOL/L (3.5-5.1)
[2016-09-05] MEDS: COLESEVELAM 625 MG TABLET PO SCH (21:53)
[2016-09-05] MEDS: LACTATED RINGERS 1,000 ML IV SCH (21:53)
[2016-09-05 21:54] LABS: Lactic Acid 1.3 MMOL/L (0.4-2.0)
[2016-09-06] MEDS: LACTATED RINGERS 1,000 ML IV SCH ×5 (02:23→17:03)
[2016-09-06 03:00] LABS: ABG HCO3 26.2 MMOL/L (20-26); ABG PCO2 37.7 MM HG (35-48); ABG PH 7.446 (7.35-7.45); ABG TCO2 23.4 MMOL/L (23-27); Allen Test Positive; Pt O2 Delivery Device Ventilator
--- NOTE | 2016-09-06 06:31 | Pulmonology Consult Note ---
Assessment and Plan (1) Diabetes Status: Acute Assessment and plan: Glucoses well controlled Current Visit: Yes (2) Chronic colitis Status: Chronic Assessment and plan: She had problems with constipation and taking laxatives for long-term periods. Await biopsy report from surgery Current Visit: Yes (3) Colonic obstruction Status: Acute Assessment and plan: Status post colectomy with ileostomy and mucous fistula. Current Visit: Yes (4) Respiratory failure following trauma and surgery Status: Acute Assessment and plan: Chest x-ray and ABGs look great. Will reduce FiO2 and start weaning process. Hopefully her mental status will allow us to get her weaned today. She does not have any known underlying heart or lung problems. Current Visit: Yes History of Present Illness Chief complaint: Postop colectomy History of present illness: Ms. Odom is a 61 year old female who is mentally challenged. She lives in a shelter. She had acute onset of abdominal pain nausea and vomiting. She came to the emergency room was found to have a colon obstruction. Surgery it appeared to be due to ischemic colon. She had a colectomy and has an ileostomy. She was left on the ventilator postop. ABGs have looked good. Patient is on sedation at present. Will need to reduce FiO2 and allow her to wake up. Remains to be seen if her mental status will facilitate weaning. She is on some psychotropic medications. This includes Abilify. Home Medications Medication Instructions Recorded Confirmed Type ARIPiprazole [Abilify] 5 mg PO 1700 09/05/16 09/05/16 History Acetaminophen 325 - 650 mg PO Q4H PRN 09/05/16 09/05/16 History Aspirin EC Tab 325 mg PO 0645 09/05/16 09/05/16 History Bisoprolol Fumarate 5 mg PO 0645 09/05/16 09/05/16 History Calcium (Carb)/Vit D 500-200 1 tablet PO 0645,1700 09/05/16 09/05/16 History [Oscal 500 + D] Cholecalciferol (Vitamin D3) 5,000 unit PO 0645 09/05/16 09/05/16 History [Vitamin D3] Colesevelam [Welchol] 625 mg PO BID 09/05/16 09/05/16 History Diclofenac Sodium [Diclofenac 100 mg PO DAILY W/BREAKFAST 09/05/16 09/05/16 History Sodium ER] Diphenoxylate/Atrop 2.5-0.025 1 - 2 tablet PO TID 09/05/16 09/05/16 History [Lomotil Tab] Fluticasone 50 Mcg Nasal [place] 1 spray BOTH NARES 0645 PRN 09/05/16 09/05/16 History [Flonase Nasal [place]] Latanoprost [Xalatan] 1 drop BOTH EYES 0645 09/05/16 09/05/16 History Loperamide Cap [Imodium Cap] 2 mg PO QID PRN 09/05/16 09/05/16 History Loratadine Tab [Claritin Tab] 10 mg PO 0645 PRN 09/05/16 09/05/16 History Methyl Salicylate/Menthol 118 ml TOP DAILY PRN 09/05/16 09/05/16 History [Salonpas Pain Relieving Foam] Moisturizing Cream (Eucerin) 1 applic TOP 0645,1700 09/05/16 09/05/16 History [Eucerin Cream] Omeprazole [Prilosec] 20 mg PO 0645 09/05/16 09/05/16 History Ondansetron HCl 4 mg PO Q6H PRN 09/05/16 09/05/16 History Pramoxine 1% Rectal Foam 1 applic TOP TID PRN 09/05/16 09/05/16 History [Proctofoam 1% Foam] Triamcinolone 0.1% Cream [Kenalog 1 applic TOP 0645 09/05/16 09/05/16 History 0.1% Cream] buPROPion HCl [Bupropion HCl Sr] 150 mg PO 0645 09/05/16 09/05/16 History Allergies Allergy/AdvReac Type Severity Reaction Status Date / Time Sulfa (Sulfonamide Allergy HIVES Verified 06/28/16 10:01 Antibiotics) ROS unobtainable: due to endotracheal tube Exam (Pulmonay) H&P - Constitutional Vitals: Period Temp Pulse Resp BP Sys/Harvey Pulse Ox Last 24 Hr 97 F-98.6 F 80-122 12-20 86-171/55-115 94-100 Exam: Systolic blood pressure 97. Vital signs otherwise normal. Pupils react to light. Patient is sedated. Has orotracheal tube in place. Neck is supple. Chest sounds clear equal breath sounds. Heart normal rate and rhythm no murmurs. Rate is 100. Abdomen soft bandage no bowel sounds. Has right ileostomy. Mucous fistula in left lower quadrant it appears. Extremities no clubbing cyanosis edema. Medical,Surgical,& Family Hx - Medical History Cardio: History of: Hypertension, PVD, Cardiovascular Problems (murmur) Neurology: No history of: Seizures Other: History of: Miscellaneous Medical Problems (Moderate intillectual delay) - Social History Smoking Status: Never smoker Frequency of Alcohol Use: None Type of Drug Use: None Results - Labs CBC & BMP: 09/05/16 21:24 09/05/16 21:24 Lab Results: I have reviewed the past 24 hour labs - Diagnostic Findings Procedure: Chest x-ray: image reviewed by me (ET tube good position. Lungs clear.)
[2016-09-06 06:34] LABS: Basophils % 0.1 % (0.0-0.8); Hematocrit 29.5 VOL% (35.7-47.0); Hemoglobin 9.5 GM/DL (12.0-16.0); Immature Granulocytes % 0.5 %; Immature Granulocytes Absolute 0.05 #; Lymphocytes # 0.5 10*3/uL (1.4-4.0); Lymphocytes % 4.9 % (21.3-54.2); Mean Corpuscular HGB Conc 32.2 GM/DL (32-36); Mean Corpuscular Hemoglobin 28 PG (27-34); Mean Corpuscular Volume 85.8 FL (87-102); Mean Platelet Volume 9.1 FL (9.6-12.0); Monocytes # 0.9 10*3/uL (0.11-0.8); Monocytes % 7.7 % (1.7-12.7); Neutrophils # 9.5 10*3/uL (1.4-7.4); Neutrophils % 86.8 % (38.7-73.9); Platelet Count 121 T/CUMM (130-400); Red Blood Count 3.44 MC/CUMM (3.8-5.5); Red Cell Distribution Width 13.8 % (9.3-17.3)
[2016-09-06 06:53] LABS: Lactic Acid 1.4 MMOL/L (0.4-2.0)
[2016-09-06 07:07] LABS: Calcium 7.6 MG/DL (8.5-10.1); Magnesium 1.3 MG/DL (1.8-2.4); Osmolality,Calculated 284.1 MOS/KG (273-304); Potassium 3.9 MMOL/L (3.5-5.1)
[2016-09-06 07:09] LABS: Free T4 (Free Thyroxine) 1.17 NG/DL (0.76-1.46); Risk Ratio 2.04; Thyroid Stimulating Hormone 0.587 uIU/ml (0.358-3.74)
[2016-09-06] MEDS ORDERED: LACTATED RINGERS 1,000 ML IV ONE (07:10)
[2016-09-06 07:17] LABS: INR 1.1; PT Patient Result 11.5 SECS; Partial Thromboplastin Time 27.5 SECS (0-40)
[2016-09-06 07:40] LABS: Band Neutrophils 36 % (0-10); Hypochromasia 1+; Lymphocytes 3 % (20-55); Microcytosis 2+; Platelet Estimate Decreased; Polychromasia Slight; Segmented Neutrophils 58 % (50-85); Total Cells Counted 100
--- NOTE | 2016-09-06 08:03 | XRay Report ---
Portable chest. 09-05-2016 at 8:55 PM Comparison: Exam from earlier the same day. Indication: Shortness of breath. The heart is normal in size. The lung volumes are small. The lung gutierrez are clear. An endotracheal tube has been placed. Its distal tip is less than a centimeter above the dm, and pointed toward the right mainstem bronchus. It needs to be retracted, a 2 to 3 cm. The distal tip of the nasogastric tube is in satisfactory position. Impression: The endotracheal tube is low lying and needs be repositioned. PROCEDURE INTERPRETED AT [facility] DEPARTMENT OF RADIOLOGY Final Report Signed by: Dr. Didi Green
--- NOTE | 2016-09-06 08:04 | XRay Report ---
Portable chest. Indication: Intubated patient. Comparison: Last night's exam. The heart is normal in size. There is calcific plaque present within the aortic knob. The lung gutierrez remain small. Mild patchy infiltrate is developing in the left lung base. The endotracheal tube and nasogastric tube are in satisfactory position. Impression: Development of mild infiltrate in the left lung base. PROCEDURE INTERPRETED AT [facility] [place] DEPARTMENT OF RADIOLOGY Final Report Signed by: Dr. Didi Green
[2016-09-06 08:14] LABS: ABG Base Excess 2.1 MMOL/L (-2.5-2.5); ABG HCO3 26.2 MMOL/L (20-26); ABG Oxygen Saturation 95.8 % (95-100); ABG PCO2 47.1 MM HG (35-48); ABG PH 7.378 (7.35-7.45); ABG TCO2 25.1 MMOL/L (23-27)
[2016-09-06] MEDS ORDERED: CHOLECALCIFEROL 1,000 UNIT TABLET PO SCH (08:30)
--- NOTE | 2016-09-06 09:05 | Gastrointestinal Progress Note ---
Assessment and Plan (1) Colonic obstruction Status: Acute Current Visit: Yes (2) Other specified counseling Status: Acute Current Visit: Yes Gastroenterology - PN: Subj Interval history: PLEASE NOTE -- automatic citation of patient information is unavoidable in this electronic note. I have made a reasonable effort to review the information cited , but it is not a part of my evaluation, impression, or recommendation unless specifically discussed in the dictated text that follows. As well, voice recognition software was used in the creation of this clinical note. Reasonable effort was made to identify and correct gross errors. Despite proofreading, errors in senior statistician may be present, including nonsense verbiage at times. If you encounter such an error, please contact me at [phone] for discussion and correction. -- Fidel Chief complaint: abdominal pain, abnormal radiology Subjective: the patient is a 61-year-old female seen for follow-up colonic obstruction. Dr. Lee performed exploratory laparotomy yesterday with finding of diffusely ischemic bowel requiring total abdominal colectomy. He also reports a grossly adherent and scarred mass lesion in the pelvis that could not safely be addressed, even biopsied, at the time of surgery. This had to be left in place. At present the patient has been successfully extubated. She is comfortable and sleeping. She says she is thirsty.. Review of systems: unable to provide Medications: [place], Abilify, bisoprolol (Zebeta), Wellbutrin, Oscal, Cholecalciferol (vitamin D3), Colesevelam (Welchol), Lovenox, Dilaudid, Claritin , Zofran, Protonix, Pramoxine (Proctofoam), Phenergen, propofol, Latanoprost ( Xalatan) drops Physical examination: Vital Signs: Current vital signs reviewed and documented above. General Appearance: lying in bed. Comfortable. Head: Normocephalic. Neck: Palpation of the neck revealed no abnormalities. Eyes: No scleral icterus. No scleral injection. No conjunctival pallor. Oral Cavity: Odor of breath was normal. No drooling was observed. Lips showed no abnormalities. Floor of the mouth showed no abnormalities. Pharynx: Oropharynx was normal. Lungs: Respiration rhythm and depth was normal. Cardiovascular: Heart rate and rhythm were normal. Abdomen: abdomen not distended. Surgical dressings were in place. Interval placement of ileostomy and diverted colostomy are present. Musculoskeletal System: Musculoskeletal system was grossly normal. Neurological: patient was somnolent but arousable. Skin: General appearance was normal. Color and pigmentation were normal. No skin lesions. Laboratory: white blood count 11.0, hemoglobin 9.5, hematocrit 29.5, platelets 121, INR 1.1, PT 11.5 Radiology: chest x-ray, September 06, 2016 -- interval development of mild and portrayed in the left lung base Impressions: 1. Colonic obstruction -- we are grateful to Dr. Lee of the general surgery service for his expeditious and, likely, life-saving intervention with this patient. She has been successfully extubated. I recommend continued supportive care, analgesia as indicated, and follow-up of pathology specimen. The remaining pelvic mass, as described by her surgeon, could potentially be amenable to endoscopic biopsy but we will need to discuss this further before deciding on a way forward. PET scan could potentially demonstrate hypermetabolic regions which could be targeted for percutaneous biopsy. 2. Other specified counseling -- The patient was seen for greater than 30 minutes. Greater than than 50% of this time was spent reviewing and arranging care. Recommendations: -- continued supportive care -- grateful to general surgery service for expeditious evaluation and intervention -- consider pet scan for further evaluation of pelvic mass -- we will continue to follow with you. Dr. Morrison will assume G.I. care for this patient tomorrow. Exam (Progress Note) - Constitutional Vitals: Period Temp Pulse Resp BP Sys/Harvey Pulse Ox Last 24 Hr 97 F-99.2 F 80-133 12-24 86-171/55-115 94-100 Results - Labs CBC & BMP: 09/06/16 11:52 09/06/16 06:24
[2016-09-06 09:40] LABS: ABG Base Excess 2.7 MMOL/L (-2.5-2.5); ABG HCO3 26.8 MMOL/L (20-26); ABG Oxygen Saturation 96.6 % (95-100); ABG PCO2 45.8 MM HG (35-48); ABG PH 7.395 (7.35-7.45); ABG TCO2 25.4 MMOL/L (23-27)
[2016-09-06] MEDS: HYDROmorphone 2 MG/1 ML VIAL IV PRN ×2 (10:27→17:01)
[2016-09-06] MEDS: PANTOPRAZOLE 40 MG VIAL IV SCH (10:28)
[2016-09-06] MEDS: BISOPROLOL 5 MG TABLET PO SCH (10:50)
[2016-09-06] MEDS: CALCIUM (CARBONATE)/VITAMIN D 500 MG-200 UNIT TABLET PO SCH ×2 (10:50→21:36)
[2016-09-06] MEDS: COLESEVELAM 625 MG TABLET PO SCH ×2 (10:50→21:37)
[2016-09-06] MEDS: buPROPion SR 150 MG TABLET PO SCH (10:50)
[2016-09-06] MEDS: FLUTICASONE 50 MCG NASAL SPRAY 16 GM BOTTLE BOTH NARES SCH (10:50)
[2016-09-06] MEDS: LORATADINE 10 MG TABLET PO SCH (10:51)
[2016-09-06] MEDS: ASPIRIN EC 325 MG TABLET PO SCH (10:51)
[2016-09-06] MEDS: MOISTURIZING CREAM (EUCERIN) 113 GM JAR TOP SCH ×2 (10:52→21:36)
[2016-09-06] MEDS: TRIAMCINOLONE 0.1% CREAM 15 GM TUBE TOP SCH (10:52)
[2016-09-06] MEDS: LATANOPROST 0.005% OPH SOLN 2.5 ML BOTTLE BOTH EYES SCH (11:14)
--- NOTE | 2016-09-06 11:18 | Event Note ---
General Surgery Progress Note Chief complaint This patient is a 61-year-old woman who is admitted with a large bowel obstruction due to a rectosigmoid mass with stricture that was treated with laparotomy and total abdominal colectomy with end ileostomy and sigmoid colon mucous fistula on 09/05/2069 Interval history The patient remained intubated overnight. She was relatively stable. Her hemoglobin did drop a couple grams. She was a little bit hypotensive with decreased urine output overnight but this appears to be resolving with IV fluid resuscitation. She is in the process of weaning off her ventilator. Her ileostomy is producing liquid stool. PARKER drain has minimal serosanguineous output. She does wake up and follow commands. Chest x-ray today looks good. Creatinine is stable. Physical exam The patient is afebrile and she does become tachycardic when her sedation is weaned off. Her blood pressure was a little low this morning but it has responded to IV fluids Chest is clear Heart is regular but tachycardic Abdomen is soft and nondistended. It is appropriately tender in the incision is clean. The sigmoid colon mucous fistula has no output. The ileostomy is productive of gas and liquid stool Labs Reviewed, as above Imaging Chest x-ray reviewed, clear Assessment and plan Begin tube feeds if patient remains intubated. If the patient is extubated, she will be placed on a diet since her ostomy is working. Continue to monitor resuscitation and IV fluid as needed Repeat hemoglobin at noon and repeat labs again tomorrow I was unable to obtain a tissue diagnosis for the pelvic mass that had caused the rectosigmoid obstruction. We will have to allow the patient to recover from her acute illness and entertain the possibilities of biopsies if this mass forming area is still present on follow-up imaging. There was certainly no evidence of metastatic disease in the abdomen on laparotomy yesterday.
--- NOTE | 2016-09-06 11:33 | Hospitalist Progress Note ---
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 Pulmonary was consulted. Patient was extubated today. She is doing well off the vent. Exam - Constitutional Vitals: Period Temp Pulse Resp BP Sys/Harvey Pulse Ox Last 24 Hr 97 F-99.2 F 80-133 12-25 86-171/55-105 94-100 General appearance: over weight - Head Head exam: Present: normocephalic, atraumatic, other (ngt in place) - Eye Eye exam: Present: EOMI Pupils: Present: MARANDA - ENT ENT exam: Present: normal exam - Neck Neck exam: Present: normal inspection - Respiratory Respiratory exam: Present: clear to auscultation bilaterally. Absent: wheezes - Cardiovascular Cardiovascular exam: Present: tachycardia, other (regular rate) - GI/Abdominal GI/Abdominal exam: Present: normal bowel sounds, tenderness, soft, other ( iliostomy RLQ with liquid stool) - Extremities Exam Extremities exam: Present: normal inspection - Back Exam Back exam: Present: normal inspection - Neurological Exam Neurological exam: Present: alert - Psychiatric Psychiatric exam: Present: normal affect, normal mood - Skin Skin exam: Present: warm, intact Results - Labs CBC & BMP: 09/06/16 06:24 09/06/16 06:24
[2016-09-06 12:03] LABS: Basophils % 0.1 % (0.0-0.8); Hematocrit 28.3 VOL% (35.7-47.0); Hemoglobin 9.1 GM/DL (12.0-16.0); Immature Granulocytes % 0.6 %; Immature Granulocytes Absolute 0.07 #; Lymphocytes # 0.7 10*3/uL (1.4-4.0); Lymphocytes % 6.6 % (21.3-54.2); Mean Corpuscular HGB Conc 32.2 GM/DL (32-36); Mean Corpuscular Hemoglobin 28 PG (27-34); Mean Corpuscular Volume 85.5 FL (87-102); Neutrophils # 9.2 10*3/uL (1.4-7.4); Neutrophils % 83.7 % (38.7-73.9); Platelet Count 131 T/CUMM (130-400); Red Blood Count 3.31 MC/CUMM (3.8-5.5); Red Cell Distribution Width 13.9 % (9.3-17.3)
[2016-09-06 12:40] LABS: Hypochromasia 2+; Microcytosis 2+; Polychromasia Slight
[2016-09-06] MEDS: ARIPiprazole 5 MG TABLET PO SCH (17:01)
[2016-09-06] MEDS: ENOXAPARIN 40 MG/0.4 ML SYRINGE SUBCUT SCH (18:19)
[2016-09-07] MEDS: ALBUTEROL/IPRATROPIUM 3 ML NEB RESP TX SCH ×3 (05:46→20:46)
[2016-09-07] MEDS: DEXTROSE 5% NACL 0.45% 1,000 ML IV SCH (05:49)
[2016-09-07] MEDS ORDERED: FUROSEMIDE 20 MG/2 ML VIAL IV ONE (06:24)
--- NOTE | 2016-09-07 06:27 | Event Note ---
General Surgery Progress Note Chief complaint This patient is a 61-year-old woman who is admitted with a large bowel obstruction due to a rectosigmoid mass with stricture that was treated with laparotomy and total abdominal colectomy with end ileostomy and sigmoid colon mucous fistula on 09/05/2069 Interval history The patient had a good night last night. Her urine output has picked up and is now adequate. She is wheezing a little bit this morning and is audible on her interview. She has recorded +6 kg since admission on her weight. She required a fair amount of fluid resuscitation after her surgery. The patient is not cooperating with her incentive spirometry and initially refused labs this morning. Physical exam The patient is afebrile and has normal vital signs with the exception of a low- grade tachycardia which is regular Pulmonary exam reveals wheezing bilaterally Heart is regular but tachycardic Abdomen is soft and nondistended. It is appropriately tender in the incision is clean. The sigmoid colon mucous fistula has no output. Part of the sigmoid mucous fistula has retracted into the wound and but the majority of it is still intact at the skin level. The ileostomy is productive of gas and liquid stool Labs Pending Imaging None new Assessment and plan Advance to regular diet Begin DuoNeb treatment Fluids have been decreased to 50 cc an hour and 1 time dose of 20 mg Lasix has been administered because of the patient's volume status The patient can be transferred to the floor later today if her respiratory situation has improved with the above measures Continue DVT chemoprophylaxis and SCDs Increase activity
[2016-09-07] MEDS: LACTATED RINGERS 1,000 ML IV SCH ×2 (06:42→08:35)
--- NOTE | 2016-09-07 07:15 | Anesthesia Post-Op ---
Anesthesia Post OP - Post Ansesthetic Evaluation Patient seen in post op: Yes Resp: within normal limits CV: within normal limits Mental: within normal limits Temp: within normal limits [id number]: within normal limits Nausea and Vomiting: within normal limits Pain: within normal limits
[2016-09-07 07:19] LABS: Calcium 8.4 MG/DL (8.5-10.1); Magnesium 1.6 MG/DL (1.8-2.4); Osmolality,Calculated 281.1 MOS/KG (273-304)
--- NOTE | 2016-09-07 07:30 | Pulmonology Progress Note ---
Pulmonary - PN: Subj Interval history: This 61-year-old lady had surgery for a colon obstruction. She was extubated yesterday. She is responsive today. Has some soreness in her abdomen otherwise no new complaints. Oxygen saturations look good on room air. Exam (Progress Note) - Constitutional Vitals: Period Temp Pulse Resp BP Sys/Harvey Pulse Ox Last 24 Hr 97.4 F-100.6 F 93-133 14-27 87-133/56-84 96-100 Exam: Patient is alert and responsive. Vital signs normal. Pupils react to light. Throat is clear. Neck supple no bruits. Chest sounds clear. Heart normal rate and rhythm no murmurs. Abdomen is soft mild tenderness over the surgical site. Remedies no clubbing cyanosis or edema. Calves nontender. Results - Labs CBC & BMP: 09/06/16 11:52 09/07/16 06:24 Lab Results: I have reviewed the past 24 hour labs Assessment and Plan (1) Diabetes Status: Acute Assessment and plan: Glucoses well controlled 09/07/2016 blood sugars are normal. Hemoglobin A1c 5.4%. Very well controlled if she is diabetic. Current Visit: Yes (2) Chronic colitis Status: Chronic Assessment and plan: She had problems with constipation and taking laxatives for long-term periods. Await biopsy report from surgery Current Visit: Yes (3) Colonic obstruction Status: Acute Assessment and plan: Status post colectomy with ileostomy and mucous fistula. 09/07/2016 status post colectomy with ileostomy. Current Visit: Yes (4) Respiratory failure following trauma and surgery Status: Acute Assessment and plan: Chest x-ray and ABGs look great. Will reduce FiO2 and start weaning process. Hopefully her mental status will allow us to get her weaned today. She does not have any known underlying heart or lung problems. 09/07/2016 patient was able to be extubated without difficulty. She is not short of breath. Oxygen saturations look okay 3L, check on room air.. Current Visit: Yes
[2016-09-07] MEDS ORDERED: MAGNESIUM SULF RIDER 4 GM in PREMIX 1 EACH IV ONE (08:07)
[2016-09-07] MEDS: PANTOPRAZOLE 40 MG VIAL IV SCH (08:44)
[2016-09-07] MEDS: MOISTURIZING CREAM (EUCERIN) 113 GM JAR TOP SCH ×2 (08:44→21:42)
[2016-09-07] MEDS: FLUTICASONE 50 MCG NASAL SPRAY 16 GM BOTTLE BOTH NARES SCH (08:44)
[2016-09-07] MEDS: buPROPion SR 150 MG TABLET PO SCH (08:45)
[2016-09-07] MEDS: BISOPROLOL 5 MG TABLET PO SCH (08:45)
[2016-09-07] MEDS: CALCIUM (CARBONATE)/VITAMIN D 500 MG-200 UNIT TABLET PO SCH ×2 (08:45→21:44)
[2016-09-07] MEDS: LORATADINE 10 MG TABLET PO SCH (08:46)
[2016-09-07] MEDS: ASPIRIN EC 325 MG TABLET PO SCH (08:46)
[2016-09-07] MEDS: COLESEVELAM 625 MG TABLET PO SCH ×2 (08:48→21:44)
[2016-09-07] MEDS: LATANOPROST 0.005% OPH SOLN 2.5 ML BOTTLE BOTH EYES SCH (08:49)
[2016-09-07] MEDS: CHOLECALCIFEROL 1,000 UNIT TABLET PO SCH (08:49)
[2016-09-07] MEDS: TRIAMCINOLONE 0.1% CREAM 15 GM TUBE TOP SCH (08:49)
[2016-09-07 09:01] LABS: Basophils % 0.2 % (0.0-0.8); Eosinophils # 0.1 10*3/uL (0.0-0.87); Eosinophils % 0.6 % (0.00-10.9); Hematocrit 28.8 VOL% (35.7-47.0); Hemoglobin 9.1 GM/DL (12.0-16.0); Immature Granulocytes % 0.7 %; Immature Granulocytes Absolute 0.07 #; Lymphocytes # 0.6 10*3/uL (1.4-4.0); Lymphocytes % 6.1 % (21.3-54.2); Mean Corpuscular HGB Conc 31.6 GM/DL (32-36); Mean Corpuscular Hemoglobin 27 PG (27-34); Mean Corpuscular Volume 86.5 FL (87-102); Mean Platelet Volume 9.4 FL (9.6-12.0); Monocytes # 0.9 10*3/uL (0.11-0.8); Monocytes % 8.7 % (1.7-12.7); Neutrophils # 8.6 10*3/uL (1.4-7.4); Neutrophils % 83.7 % (38.7-73.9); Platelet Count 129 T/CUMM (130-400); Red Blood Count 3.33 MC/CUMM (3.8-5.5); Red Cell Distribution Width 13.9 % (9.3-17.3); White Blood Count 10.3 T/CUMM (4-12)
[2016-09-07 09:35] LABS: Band Neutrophils 2 % (0-10); Eosinophils 1 % (0-10); Hypochromasia 1+; Lymphocytes 7 % (20-55); Segmented Neutrophils 81 % (50-85); Total Cells Counted 100
[2016-09-07 09:36] LABS: Microcytosis 1+; Platelet Estimate Adequate
--- NOTE | 2016-09-07 10:30 | Gastrointestinal Progress Note ---
Assessment and Plan (1) Colonic obstruction Status: Acute Assessment and plan: 6/12-postop day 3 with total abdominal colectomy for large bowel obstruction and colonic ischemia. Pelvic mass noted and recommendations for possible PET scan. Tolerating diet present. Ileostomy with good output. Plan an addendum to followed by Dr. Morrison. Current Visit: Yes Gastroenterology - PN: Subj Interval history: CC: Abdominal pain Patient is seen awake and alert sitting up in bed. States that she is having minimal abdominal pain/discomfort at this time. States that she has a good appetite and she is tolerating her diet well. She is postop day 3 following exploratory laparotomy with total abdominal colectomy with end ileostomy and sigmoid colon mucous fistula after large bowel obstruction with ischemia. Ileostomy is having good amount of liquid stool output. Operative report noted that no biopsy of the pelvic mass was taken due to risk was to high to justify proceeding with this. Patient is noted to have a history of being intellectually delayed and she does live at a residential.. At times her speech is difficult to understand due to repetitive speech. Abdomen is soft, mild tenderness to palpation. ROS: Denies shortness of breath or chest pain Exam (Progress Note) - Constitutional Vitals: Period Temp Pulse Resp BP Sys/Harvey Pulse Ox Last 24 Hr 97.4 F-100.6 F 79-119 14-28 87-137/56-84 97-100 General appearance: normal weight, no acute distress - Head Head exam: Present: normal inspection, normocephalic - Eye Eye exam: Present: other (Lids and conjunctive are unremarkable). Absent: scleral icterus - ENT ENT exam: Present: normal exam, normal oropharynx - Neck Neck exam: Present: normal inspection - Respiratory Respiratory exam: Present: clear to auscultation bilaterally. Absent: rales, rhonchi, wheezes - Cardiovascular Cardiovascular exam: Present: regular rate and rhythm. Absent: diastolic murmur , JVD, systolic murmur - GI/Abdominal GI/Abdominal exam: Present: normal bowel sounds, tenderness, soft. Absent: ascites, distended, mass, organomegaly - Extremities Exam Extremities exam: Present: normal inspection, full ROM - Back Exam Back exam: Present: normal inspection - Neurological Exam Neurological exam: Present: alert, oriented X3 - Psychiatric Psychiatric exam: Present: normal affect, normal mood - Skin Skin exam: Present: normal color, warm, dry Results - Labs CBC & BMP: 09/07/16 08:11 09/07/16 06:24 Lab Results: I have reviewed the past 24 hour labs
--- NOTE | 2016-09-07 10:37 | Hospitalist Progress Note ---
Assessment and Plan (1) S/P colectomy Status: Acute Assessment and plan: The patient has recovered her immediate postoperative phase of colectomy. The patient is stable for transfer to the floor and continued convalescence. Current Visit: Yes Hospitalist: Subjective Interval history: The patient is awake and alert. She feels better than yesterday. She has a good appetite and she is tolerating her diet well. She is postop day 3 following exploratory laparotomy with total abdominal colectomy with end ileostomy and sigmoid colon mucous fistula after large bowel obstruction with ischemia. Ileostomy is having good amount of liquid stool output. Exam - Constitutional Vitals: Period Temp Pulse Resp BP Sys/Harvey Pulse Ox Last 24 Hr 97.4 F-100.6 F 79-119 14-28 87-137/56-84 97-100 Exam: Constitutional System: No distress. No tremulousness. Head: Normocephalic, atraumatic. Ears, Nose and Throat System: No evidence of Otitis or Mastoiditis. No epistaxis or discharge Eyes System: Pupils equal, round, and reactive. Extraocular muscles intact. Neck: Supple, without adenopathy, No jugular venous distention. No thyromegaly , neck mass, or prior surgery apparent. Respiratory System: Chest clear to auscultation. Cardiovascular System: Heart with regular rate and rhythm. No murmur. GI System: Abdomen soft, moderate postoperative tenderness. Normo active bowel sounds present. Musculoskeletal System: limbs with no pedal edema. Full distal pulses. Neurological System: No discernable sensory deficit. No aphasia Psychiatric System: Conversation is rational Results - Labs CBC & BMP: 09/07/16 08:11 09/07/16 06:24 Lab Results: I have reviewed the past 24 hour labs
--- NOTE | 2016-09-07 12:26 | Pathology Report from [facility] ---
[facility] ACCESSION # : [id number] PATIENT NAME : Denver Gutiérrez ORDERING DR : Travis Lee MD CLINICAL HX: Colonic obstruction POST-OP DX: Same SPECIMEN INFO: #1 Colon #2 Colon GROSS DESCRIPTION: Received in formalin in two parts labeled:#1 DENVER GUTIÉRREZ & ( A) is a segment of colon to include the cecum measuring 46.0 x 8.0 cm. The terminal ileum measures 15.0 x 2.5 cm. An appendix is not identified. Opening the colon reveals a markedly dilated lumen with no mucosal lesions or perforations seen. Sections submitted A&B-Surgical margins, C-Head Of Mathematics bowel.#2 DENVER GUTIÉRREZ (B) is a segment of colon measuring 59.0 cm in length and up to 6.0 cm in greatest diameter. Opening the specimen reveals a dilated lumen with flattened mucosal folds noted. No mucosal lesions or perforations seen. Sections submitted 2A&2B-Surgical margins, 2C-Head Of Mathematics bowel. DIAGNOSIS FOR DENVER GUTIÉRREZ: #1 COLON, RIGHT HEMICOLECTOMY: Early ischemic changes with bowel wall hemorrhage.#2 COLON, SEGMENTAL RESECTION, 59 cm: Early ischemic changes with bowel wall hemorrhage. COMMENT: Viable margins present in both specimens. COLLECTED DATE: 09/06/2016 [facility] REPORT DATE: 09/07/2016 ELECTRONICALLY SIGNED BY: Jacqueline Paul III, M.D. 09/07/2016 - 9:05:47 [facility]
[2016-09-07] MEDS: ENOXAPARIN 40 MG/0.4 ML SYRINGE SUBCUT SCH (17:26)
[2016-09-07] MEDS: ARIPiprazole 5 MG TABLET PO SCH (17:26)
[2016-09-08] MEDS: ALBUTEROL/IPRATROPIUM 3 ML NEB RESP TX SCH ×4 (00:14→19:16)
[2016-09-08] MEDS: DEXTROSE 5% NACL 0.45% 1,000 ML IV SCH (01:43)
[2016-09-08 05:50] LABS: Magnesium 2.1 MG/DL (1.8-2.4); Osmolality,Calculated 276.7 MOS/KG (273-304); Potassium 3.4 MMOL/L (3.5-5.1)
[2016-09-08 05:54] LABS: Basophils % 0.1 % (0.0-0.8); Eosinophils # 0.1 10*3/uL (0.0-0.87); Eosinophils % 1.1 % (0.00-10.9); Immature Granulocytes % 0.5 %; Immature Granulocytes Absolute 0.04 #; Lymphocytes # 0.7 10*3/uL (1.4-4.0); Lymphocytes % 9.1 % (21.3-54.2); Mean Corpuscular HGB Conc 32.9 GM/DL (32-36); Mean Corpuscular Hemoglobin 28 PG (27-34); Mean Corpuscular Volume 84.2 FL (87-102); Mean Platelet Volume 9.5 FL (9.6-12.0); Monocytes # 0.6 10*3/uL (0.11-0.8); Monocytes % 7.4 % (1.7-12.7); Neutrophils # 6.2 10*3/uL (1.4-7.4); Neutrophils % 81.8 % (38.7-73.9); Platelet Count 133 T/CUMM (130-400); Red Blood Count 2.85 MC/CUMM (3.8-5.5); Red Cell Distribution Width 13.5 % (9.3-17.3); White Blood Count 7.6 T/CUMM (4-12)
[2016-09-08 05:56] LABS: Hemoglobin 7.9 GM/DL (12.0-16.0)
[2016-09-08 06:20] LABS: Hypochromasia 2+; Microcytosis 2+
--- NOTE | 2016-09-08 07:30 | Pulmonology Progress Note ---
Pulmonary - PN: Subj Interval history: This 61-year-old lady had surgery for a colon obstruction. She was extubated yesterday. She is responsive today. Has some soreness in her abdomen otherwise no new complaints. Oxygen saturations look good on room air. Patient extubated and has done well since then. She is responsive watching television and conversational. Oxygen saturation 100% on 2 L. Probably could wean her oxygen over the next day or 2. She is stable from pulmonary standpoint. I will sign off. Call if needed further Exam (Progress Note) - Constitutional Vitals: Period Temp Pulse Resp BP Sys/Harvey Pulse Ox Last 24 Hr 97.8 F-100.4 F 76-107 8-28 93-137/49-81 98-100 Exam: Patient is alert and responsive. Vital signs normal. Pupils react to light. Throat is clear. Neck supple no bruits. Chest sounds clear. Heart normal rate and rhythm no murmurs. Abdomen is soft mild tenderness over the surgical site. Remedies no clubbing cyanosis or edema. Calves nontender. Results - Labs CBC & BMP: 09/08/16 05:01 09/08/16 05:01 Lab Results: I have reviewed the past 24 hour labs Assessment and Plan (1) Diabetes Status: Acute Assessment and plan: Glucoses well controlled 09/07/2016 blood sugars are normal. Hemoglobin A1c 5.4%. Very well controlled if she is diabetic. Current Visit: Yes (2) Chronic colitis Status: Chronic Assessment and plan: She had problems with constipation and taking laxatives for long-term periods. Await biopsy report from surgery 09/08/2016 apparently this led to her surgery. Current Visit: Yes (3) Colonic obstruction Status: Acute Assessment and plan: Status post colectomy with ileostomy and mucous fistula. 09/07/2016 status post colectomy with ileostomy. 09/08/2016 status postop colectomy and ileostomy. Current Visit: Yes (4) Respiratory failure following trauma and surgery Status: Resolved Assessment and plan: Chest x-ray and ABGs look great. Will reduce FiO2 and start weaning process. Hopefully her mental status will allow us to get her weaned today. She does not have any known underlying heart or lung problems. 09/07/2016 patient was able to be extubated without difficulty. She is not short of breath. Oxygen saturations look okay 3L, check on room air.. 09/08/2016 respiratory failure has resolved other than low flow oxygen requirement. This should curtail over the next few days Current Visit: Yes
[2016-09-08] MEDS: PANTOPRAZOLE 40 MG VIAL IV SCH (08:28)
[2016-09-08] MEDS: buPROPion SR 150 MG TABLET PO SCH (08:29)
[2016-09-08] MEDS: CHOLECALCIFEROL 1,000 UNIT TABLET PO SCH (08:29)
[2016-09-08] MEDS: BISOPROLOL 5 MG TABLET PO SCH (08:29)
[2016-09-08] MEDS: COLESEVELAM 625 MG TABLET PO SCH ×2 (08:29→21:01)
[2016-09-08] MEDS: CALCIUM (CARBONATE)/VITAMIN D 500 MG-200 UNIT TABLET PO SCH ×2 (08:29→21:01)
[2016-09-08] MEDS: FLUTICASONE 50 MCG NASAL SPRAY 16 GM BOTTLE BOTH NARES SCH (08:30)
[2016-09-08] MEDS: ASPIRIN EC 325 MG TABLET PO SCH (08:30)
[2016-09-08] MEDS: TRIAMCINOLONE 0.1% CREAM 15 GM TUBE TOP SCH (08:30)
[2016-09-08] MEDS: LORATADINE 10 MG TABLET PO SCH (08:30)
[2016-09-08] MEDS: LATANOPROST 0.005% OPH SOLN 2.5 ML BOTTLE BOTH EYES SCH (08:30)
[2016-09-08] MEDS: MOISTURIZING CREAM (EUCERIN) 113 GM JAR TOP SCH ×2 (08:30→21:05)
--- NOTE | 2016-09-08 10:48 | Event Note ---
General Surgery Progress Note Chief complaint This patient is a 61-year-old woman who is admitted with a large bowel obstruction due to a rectosigmoid mass with stricture that was treated with laparotomy and total abdominal colectomy with end ileostomy and sigmoid colon mucous fistula on 09/05/2069 Interval history No events overnight. Apparently the patient has floor orders but no bed yet. There is nothing showing up showing she has a pending transfer when I open her chart. She feels well and her pain is well controlled. She has low-grade temps at night which is likely atelectasis but we are trying to get her to use her incentive spirometer. She is tolerating a diet and her ostomy is working well. Hemoglobin did drop down to 7.9 g/dL today. Creatinine is normal. PARKER output is about 200 cc of serosanguineous fluid. She responded well to her Lasix challenge yesterday. Physical exam Low-grade temp overnight with normal vital signs otherwise this morning Pulmonary exam reveals resolution of wheezing Heart is regular but tachycardic Abdomen is soft and nondistended. It is appropriately tender in the incision is clean. The sigmoid colon mucous fistula has no output. Part of the sigmoid mucous fistula has retracted into the wound and but the majority of it is still intact at the skin level. It is unchanged from yesterday. The ileostomy is productive of gas and liquid stool Labs Hemoglobin is 7.9 Imaging None new Assessment and plan Okay to transfer to floor Continue diet as tolerated Increase activity today Repeat CBC tomorrow
--- NOTE | 2016-09-08 13:23 | Hospitalist Progress Note ---
Assessment and Plan (1) S/P colectomy Status: Acute Assessment and plan: The patient has recovered her immediate postoperative phase of colectomy. The patient is stable for transfer to the floor and continued convalescence. Current Visit: Yes Hospitalist: Subjective Interval history: This is a 61-year-old lady with developmental delay. The patient was admitted from [facility] with ischemic colitis and has had total colectomy. The patient has functioning ileostomy. The patient has orders for transfer to the floor but no monitored bed is available at this time. Exam - Constitutional Vitals: Period Temp Pulse Resp BP Sys/Harvey Pulse Ox Last 24 Hr 98.1 F-100.4 F 82-107 8-28 99-118/49-75 98-100 Exam: Constitutional System: No distress. No tremulousness. Head: Normocephalic, atraumatic. Ears, Nose and Throat System: No evidence of Otitis or Mastoiditis. No epistaxis or discharge Eyes System: Pupils equal, round, and reactive. Extraocular muscles intact. Neck: Supple, without adenopathy, No jugular venous distention. No thyromegaly , neck mass, or prior surgery apparent. Respiratory System: Chest clear to auscultation. Cardiovascular System: Heart with regular rate and rhythm. No murmur. GI System: Abdomen soft, moderate postoperative tenderness. Normo active bowel sounds present. Musculoskeletal System: limbs with no pedal edema. Full distal pulses. Neurological System: No discernable sensory deficit. No aphasia Psychiatric System: Conversation is rational Results - Labs CBC & BMP: 09/08/16 05:01 09/08/16 05:01 Lab Results: I have reviewed the past 24 hour labs
[2016-09-08] MEDS: ENOXAPARIN 40 MG/0.4 ML SYRINGE SUBCUT SCH (18:08)
[2016-09-08] MEDS: ARIPiprazole 5 MG TABLET PO SCH (21:01)
[2016-09-09] MEDS: ALBUTEROL/IPRATROPIUM 3 ML NEB RESP TX SCH ×4 (01:31→19:41)
[2016-09-09 05:26] LABS: Basophils % 0.2 % (0.0-0.8); Eosinophils # 0.1 10*3/uL (0.0-0.87); Eosinophils % 1.9 % (0.00-10.9); Immature Granulocytes % 0.6 %; Immature Granulocytes Absolute 0.03 #; Lymphocytes # 0.7 10*3/uL (1.4-4.0); Lymphocytes % 13.6 % (21.3-54.2); Mean Corpuscular Hemoglobin 28 PG (27-34); Mean Corpuscular Volume 86.8 FL (87-102); Mean Platelet Volume 8.8 FL (9.6-12.0); Monocytes # 0.5 10*3/uL (0.11-0.8); Monocytes % 9.2 % (1.7-12.7); Neutrophils # 3.9 10*3/uL (1.4-7.4); Neutrophils % 74.5 % (38.7-73.9); Platelet Count 140 T/CUMM (130-400); Red Blood Count 2.88 MC/CUMM (3.8-5.5); Red Cell Distribution Width 13.3 % (9.3-17.3); White Blood Count 5.2 T/CUMM (4-12)
[2016-09-09 05:53] LABS: Calcium 8.3 MG/DL (8.5-10.1); Osmolality,Calculated 282.1 MOS/KG (273-304); Potassium 3.6 MMOL/L (3.5-5.1)
--- NOTE | 2016-09-09 08:34 | Event Note ---
General Surgery Progress Note Chief complaint This patient is a 61-year-old woman who is admitted with a large bowel obstruction due to a rectosigmoid mass with stricture that was treated with laparotomy and total abdominal colectomy with end ileostomy and sigmoid colon mucous fistula on 09/05/2069 Interval history No events overnight. Patient was transferred to the floor yesterday. She says she is sad but overall she is eating well and her pain seems well controlled. Her ostomy is working well and had 1.6 L of output yesterday. Her labs are stable and her hemoglobin has stabilized. Physical exam Afebrile with normal vital signs Pulmonary exam reveals clear bilaterally Heart is regular with no murmurs Abdomen is soft but slightly more distended than yesterday. Bowel sounds are normal. Ostomy is working well. There is some stool output from her mucous fistula in her left lower quadrant. Incision is clean with no evidence of infection. Labs Hemoglobin is stable Potassium is improved and electrolytes are unremarkable Imaging None new Assessment and plan Continue diet as tolerated Try to increase activity today Discharge planning
[2016-09-09] MEDS: buPROPion SR 150 MG TABLET PO SCH (10:17)
[2016-09-09] MEDS: COLESEVELAM 625 MG TABLET PO SCH ×2 (10:17→21:35)
[2016-09-09] MEDS: CALCIUM (CARBONATE)/VITAMIN D 500 MG-200 UNIT TABLET PO SCH ×2 (10:17→21:34)
[2016-09-09] MEDS: ASPIRIN EC 325 MG TABLET PO SCH (10:17)
[2016-09-09] MEDS: CHOLECALCIFEROL 1,000 UNIT TABLET PO SCH (10:17)
[2016-09-09] MEDS: LORATADINE 10 MG TABLET PO SCH (10:17)
[2016-09-09] MEDS: TRIAMCINOLONE 0.1% CREAM 15 GM TUBE TOP SCH (10:17)
[2016-09-09] MEDS: BISOPROLOL 5 MG TABLET PO SCH (10:17)
[2016-09-09] MEDS: PANTOPRAZOLE 40 MG VIAL IV SCH (10:17)
[2016-09-09] MEDS: MOISTURIZING CREAM (EUCERIN) 113 GM JAR TOP SCH ×2 (10:17→21:34)
[2016-09-09] MEDS: FLUTICASONE 50 MCG NASAL SPRAY 16 GM BOTTLE BOTH NARES SCH (10:18)
--- NOTE | 2016-09-09 12:16 | Hospitalist Progress Note ---
Assessment and Plan - Time spent with patient Time spent with patient: Greater than 30 minutes (1) S/P colectomy Status: Acute Assessment and plan: Patient's had a colectomy for colitis. She has been stable since, will continue supportive care. Current Visit: Yes Hospitalist: Subjective Interval history: Ms. Odom was transferred from the intensive care unit overnight and has been stable since. She is status post colectomy. She is tired this morning and states she is cold otherwise has no complaints Exam - Constitutional Vitals: Period Temp Pulse Resp BP Sys/Harvey Pulse Ox Last 24 Hr 97.3 F-99.0 F 81-112 12-24 97-128/54-71 87-100 General appearance: no acute distress, morbidly obese - Head Head exam: Present: normal inspection, normocephalic, atraumatic - Eye Eye exam: Present: EOMI Pupils: Present: MARANDA - ENT ENT exam: Present: normal exam - Neck Neck exam: Present: normal inspection - Respiratory Respiratory exam: Present: clear to auscultation bilaterally. Absent: rhonchi, wheezes - Cardiovascular Cardiovascular exam: Present: regular rate and rhythm. Absent: gallop, rubs, systolic murmur - GI/Abdominal GI/Abdominal exam: Present: normal bowel sounds, distended, soft, other ( Colostomy bag with gas). Absent: firm, guarding, tenderness, rebound - Extremities Exam Extremities exam: Present: normal inspection. Absent: calf tenderness, edema Results - Labs CBC & BMP: 09/09/16 05:13 09/09/16 05:13 Lab Results: I have reviewed the past 24 hour labs
--- NOTE | 2016-09-09 16:58 | XRay Report ---
Exam: XR KUB Date: 09/09/2016 3:51 PM Indication: Vomiting Comparison: 06/28/2016 Technical: AP supine Findings: Surgical changes present in the mid abdomen with a Leroy drain along the mid pelvis and right lower quadrant and pelvic region. Some mildly reactive bowel present. The liver shadow is intact the spleen and renal shadows are obscured. Bony structures are not well seen. Impression: 1. Status post mid abdominal surgical changes with a Leroy drain in the right lower abdomen and pelvis 2. Mild reactive bowel gas pattern without obvious obstruction. No obvious pneumoperitoneum PROCEDURE INTERPRETED AT [facility], [place] DEPARTMENT OF RADIOLOGY Final Report Signed by: Dr. Riley Rasmussen
[2016-09-09] MEDS ORDERED: PROMETHAZINE 25 MG/1 ML VIAL IM PRN (17:17)
[2016-09-09] MEDS: LATANOPROST 0.005% OPH SOLN 2.5 ML BOTTLE BOTH EYES SCH (17:52)
[2016-09-09] MEDS: ARIPiprazole 5 MG TABLET PO SCH (17:54)
[2016-09-09] MEDS: DEXT 5% NACL 0.45% KCL 20 MEQ 20 MEQ/1,000 ML BAG IV SCH (19:26)
[2016-09-09] MEDS: ENOXAPARIN 40 MG/0.4 ML SYRINGE SUBCUT SCH (19:27)
[2016-09-10] MEDS: ALBUTEROL/IPRATROPIUM 3 ML NEB RESP TX SCH ×4 (01:09→20:05)
[2016-09-10] MEDS: DEXT 5% NACL 0.45% KCL 20 MEQ 20 MEQ/1,000 ML BAG IV SCH ×3 (03:34→23:02)
[2016-09-10 05:35] LABS: Calcium 8.6 MG/DL (8.5-10.1); Potassium 3.8 MMOL/L (3.5-5.1)
[2016-09-10 06:44] LABS: Basophils % 0.2 % (0.0-0.8); Eosinophils # 0.1 10*3/uL (0.0-0.87); Eosinophils % 1.6 % (0.00-10.9); Hematocrit 26.7 VOL% (35.7-47.0); Hemoglobin 8.3 GM/DL (12.0-16.0); Immature Granulocytes % 0.3 %; Immature Granulocytes Absolute 0.02 #; Lymphocytes # 0.8 10*3/uL (1.4-4.0); Lymphocytes % 13.8 % (21.3-54.2); Mean Corpuscular HGB Conc 31.1 GM/DL (32-36); Mean Corpuscular Hemoglobin 27 PG (27-34); Mean Corpuscular Volume 85.9 FL (87-102); Mean Platelet Volume 9.5 FL (9.6-12.0); Monocytes # 0.6 10*3/uL (0.11-0.8); Monocytes % 10.5 % (1.7-12.7); Neutrophils # 4.2 10*3/uL (1.4-7.4); Neutrophils % 73.6 % (38.7-73.9); Platelet Count 182 T/CUMM (130-400); Red Blood Count 3.11 MC/CUMM (3.8-5.5); Red Cell Distribution Width 13.2 % (9.3-17.3); White Blood Count 5.7 T/CUMM (4-12)
[2016-09-10] MEDS: CALCIUM (CARBONATE)/VITAMIN D 500 MG-200 UNIT TABLET PO SCH ×2 (09:29→20:37)
[2016-09-10] MEDS: COLESEVELAM 625 MG TABLET PO SCH ×2 (09:29→20:38)
[2016-09-10] MEDS: ASPIRIN EC 325 MG TABLET PO SCH (09:29)
[2016-09-10] MEDS: CHOLECALCIFEROL 1,000 UNIT TABLET PO SCH (09:29)
[2016-09-10] MEDS: buPROPion SR 150 MG TABLET PO SCH (09:30)
[2016-09-10] MEDS: PANTOPRAZOLE 40 MG VIAL IV SCH (09:30)
[2016-09-10] MEDS: BISOPROLOL 5 MG TABLET PO SCH (09:30)
[2016-09-10] MEDS: LORATADINE 10 MG TABLET PO SCH (09:30)
[2016-09-10] MEDS: TRIAMCINOLONE 0.1% CREAM 15 GM TUBE TOP SCH (09:32)
[2016-09-10] MEDS: FLUTICASONE 50 MCG NASAL SPRAY 16 GM BOTTLE BOTH NARES SCH (09:32)
[2016-09-10] MEDS: MOISTURIZING CREAM (EUCERIN) 113 GM JAR TOP SCH ×2 (09:32→20:40)
[2016-09-10] MEDS: LATANOPROST 0.005% OPH SOLN 2.5 ML BOTTLE BOTH EYES SCH (11:41)
--- NOTE | 2016-09-10 12:25 | Hospitalist Progress Note ---
Assessment and Plan - Time spent with patient Time spent with patient: Greater than 30 minutes (1) S/P colectomy Status: Acute Assessment and plan: Tolerating a full diet. Patient's had a colectomy for colitis. She has been stable since, will continue supportive care. Current Visit: Yes (2) Anemia Status: Acute Assessment and plan: Stable. Current Visit: Yes Hospitalist: Subjective Interval history: Tolerating diet. Complains of abdominal pain. No overnight events. Exam - Constitutional Vitals: Period Temp Pulse Resp BP Sys/Harvey Pulse Ox Last 24 Hr 97.0 F-98.7 F 85-95 16-20 105-127/59-78 98-100 General appearance: no acute distress - Head Head exam: Present: normocephalic, atraumatic - Eye Eye exam: Present: EOMI Pupils: Present: MARANDA - ENT ENT exam: Present: normal exam - Neck Neck exam: Present: normal inspection - Respiratory Respiratory exam: Present: clear to auscultation bilaterally. Absent: rhonchi, wheezes - Cardiovascular Cardiovascular exam: Present: regular rate and rhythm. Absent: gallop, rubs, systolic murmur - GI/Abdominal GI/Abdominal exam: Present: normal bowel sounds, distended, tenderness (diffuse) , soft, other (ileostomy contains watery diarrhea). Absent: firm, guarding, rebound - Extremities Exam Extremities exam: Present: normal inspection. Absent: calf tenderness, edema Results - Labs CBC & BMP: 09/10/16 04:36 09/10/16 04:36 Lab Results: I have reviewed the past 24 hour labs
[2016-09-10] MEDS: ENOXAPARIN 40 MG/0.4 ML SYRINGE SUBCUT SCH (17:14)
[2016-09-10] MEDS: ARIPiprazole 5 MG TABLET PO SCH (17:14)
[2016-09-11] MEDS: ALBUTEROL/IPRATROPIUM 3 ML NEB RESP TX SCH ×4 (00:38→19:45)
[2016-09-11 06:25] LABS: Basophils % 0.2 % (0.0-0.8); Eosinophils # 0.1 10*3/uL (0.0-0.87); Eosinophils % 2.3 % (0.00-10.9); Hematocrit 26.1 VOL% (35.7-47.0); Hemoglobin 8.2 GM/DL (12.0-16.0); Immature Granulocytes % 0.7 %; Immature Granulocytes Absolute 0.04 #; Lymphocytes # 0.9 10*3/uL (1.4-4.0); Lymphocytes % 14.9 % (21.3-54.2); Mean Corpuscular HGB Conc 31.4 GM/DL (32-36); Mean Corpuscular Hemoglobin 27 PG (27-34); Mean Corpuscular Volume 86.4 FL (87-102); Mean Platelet Volume 9.2 FL (9.6-12.0); Monocytes # 0.6 10*3/uL (0.11-0.8); Neutrophils # 4.3 10*3/uL (1.4-7.4); Neutrophils % 71.9 % (38.7-73.9); Platelet Count 189 T/CUMM (130-400); Red Blood Count 3.02 MC/CUMM (3.8-5.5); Red Cell Distribution Width 13.1 % (9.3-17.3)
--- NOTE | 2016-09-11 06:44 | Event Note ---
General Surgery Progress Note Chief complaint This patient is a 61-year-old woman who is admitted with a large bowel obstruction due to a rectosigmoid mass with stricture that was treated with laparotomy and total abdominal colectomy with end ileostomy and sigmoid colon mucous fistula on 09/05/2069 Interval history No events overnight. Patient is tolerating liquid diet well. Her pain overall seems well controlled. No nausea or vomiting. Ostomy is working well. There is some output from the mucous fistula in the left lower quadrant but it is fairly minimal. The patient got up in a chair yesterday but has not ambulated yet. Physical exam Afebrile with normal vital signs Pulmonary exam reveals clear bilaterally Heart is regular with no murmurs Abdomen is soft and less distended than yesterday. There are normal bowel sounds. The ostomy is productive of stool and air. There is a small amount of stool coming from the mucous fistula. Incision is clean there are small patchy areas of erythema but nothing that looks like an undrained infection. There is no drainage from the incision. Labs None new Imaging None new Assessment and plan Advance to regular diet Begin ambulating in the hallway We will check a drain creatinine and discontinue the patient's Morgan catheter dvt chemoprophylaxis
[2016-09-11 07:14] LABS: Calcium 8.7 MG/DL (8.5-10.1); Osmolality,Calculated 281.1 MOS/KG (273-304); Potassium 4.1 MMOL/L (3.5-5.1)
[2016-09-11] MEDS: DEXT 5% NACL 0.45% KCL 20 MEQ 20 MEQ/1,000 ML BAG IV SCH ×3 (08:12→19:04)
[2016-09-11] MEDS: CHOLECALCIFEROL 1,000 UNIT TABLET PO SCH (09:28)
[2016-09-11] MEDS: LORATADINE 10 MG TABLET PO SCH (09:28)
[2016-09-11] MEDS: BISOPROLOL 5 MG TABLET PO SCH (09:28)
[2016-09-11] MEDS: ASPIRIN EC 325 MG TABLET PO SCH (09:28)
[2016-09-11] MEDS: FLUTICASONE 50 MCG NASAL SPRAY 16 GM BOTTLE BOTH NARES SCH (09:28)
[2016-09-11] MEDS: COLESEVELAM 625 MG TABLET PO SCH ×2 (09:28→20:19)
[2016-09-11] MEDS: CALCIUM (CARBONATE)/VITAMIN D 500 MG-200 UNIT TABLET PO SCH ×2 (09:28→20:19)
[2016-09-11] MEDS: buPROPion SR 150 MG TABLET PO SCH (09:28)
[2016-09-11] MEDS: MOISTURIZING CREAM (EUCERIN) 113 GM JAR TOP SCH ×2 (09:29→20:20)
[2016-09-11] MEDS: TRIAMCINOLONE 0.1% CREAM 15 GM TUBE TOP SCH (09:29)
[2016-09-11] MEDS: PANTOPRAZOLE 40 MG VIAL IV SCH (10:45)
[2016-09-11] MEDS: LATANOPROST 0.005% OPH SOLN 2.5 ML BOTTLE BOTH EYES SCH (10:45)
--- NOTE | 2016-09-11 11:51 | Hospitalist Progress Note ---
Assessment and Plan - Time spent with patient Time spent with patient: Greater than 30 minutes (1) S/P colectomy Status: Acute Assessment and plan: Tolerating a full diet. Patient had a colectomy for ischemic colitis. She has been stable since, will continue supportive care. Current Visit: Yes (2) Anemia Status: Acute Assessment and plan: Stable. Current Visit: Yes Hospitalist: Subjective Interval history: Patient has a great appetite, and is passing stool and gas. She denies n/v. States she continues to have abdominal pain. Has output of watery stool. Exam - Constitutional Vitals: Period Temp Pulse Resp BP Sys/Harvey Pulse Ox Last 24 Hr 96.9 F-98.5 F 77-98 15-20 99-132/55-71 92-100 General appearance: no acute distress - Head Head exam: Present: normocephalic, atraumatic - Eye Eye exam: Present: EOMI Pupils: Present: MARANDA - ENT ENT exam: Present: normal exam - Neck Neck exam: Present: normal inspection - Respiratory Respiratory exam: Present: clear to auscultation bilaterally. Absent: rhonchi, wheezes - Cardiovascular Cardiovascular exam: Present: regular rate and rhythm. Absent: gallop, rubs, systolic murmur - GI/Abdominal GI/Abdominal exam: Present: normal bowel sounds, distended, tenderness, soft, other (ileostomy bag with watery contents. PARKER drain in place.). Absent: firm, guarding, rebound - Extremities Exam Extremities exam: Present: normal inspection. Absent: calf tenderness, edema Results - Labs CBC & BMP: 09/11/16 05:03 09/11/16 05:02 Lab Results: I have reviewed the past 24 hour labs
[2016-09-11] MEDS: ARIPiprazole 5 MG TABLET PO SCH (17:24)
[2016-09-11] MEDS: ENOXAPARIN 40 MG/0.4 ML SYRINGE SUBCUT SCH (19:04)
[2016-09-12] MEDS: ALBUTEROL/IPRATROPIUM 3 ML NEB RESP TX SCH ×4 (00:12→19:49)
[2016-09-12] MEDS: DEXT 5% NACL 0.45% KCL 20 MEQ 20 MEQ/1,000 ML BAG IV SCH ×3 (00:36→20:40)
[2016-09-12 05:27] LABS: Basophils % 0.1 % (0.0-0.8); Eosinophils # 0.2 10*3/uL (0.0-0.87); Eosinophils % 2.2 % (0.00-10.9); Hematocrit 25.2 VOL% (35.7-47.0); Immature Granulocytes % 1.6 %; Immature Granulocytes Absolute 0.12 #; Lymphocytes % 12.8 % (21.3-54.2); Mean Corpuscular HGB Conc 31.7 GM/DL (32-36); Mean Corpuscular Hemoglobin 27 PG (27-34); Mean Platelet Volume 9.2 FL (9.6-12.0); Monocytes # 0.8 10*3/uL (0.11-0.8); Monocytes % 10.2 % (1.7-12.7); Neutrophils # 5.4 10*3/uL (1.4-7.4); Neutrophils % 73.1 % (38.7-73.9); Platelet Count 234 T/CUMM (130-400); Red Blood Count 2.93 MC/CUMM (3.8-5.5); Red Cell Distribution Width 13.2 % (9.3-17.3); White Blood Count 7.4 T/CUMM (4-12)
[2016-09-12 06:06] LABS: Calcium 8.2 MG/DL (8.5-10.1); Osmolality,Calculated 281.1 MOS/KG (273-304); Potassium 4.3 MMOL/L (3.5-5.1)
--- NOTE | 2016-09-12 08:54 | Event Note ---
She has no complaints this morning. She denies abdominal pain. She is afebrile with stable vital signs. Her creatinine level and her drain fluid is normal. We will try getting her up more.
[2016-09-12] MEDS: LORATADINE 10 MG TABLET PO SCH (09:41)
[2016-09-12] MEDS: MOISTURIZING CREAM (EUCERIN) 113 GM JAR TOP SCH ×2 (09:41→20:40)
[2016-09-12] MEDS: TRIAMCINOLONE 0.1% CREAM 15 GM TUBE TOP SCH (09:41)
[2016-09-12] MEDS: ASPIRIN EC 325 MG TABLET PO SCH (09:41)
[2016-09-12] MEDS: CALCIUM (CARBONATE)/VITAMIN D 500 MG-200 UNIT TABLET PO SCH ×2 (09:41→20:41)
[2016-09-12] MEDS: COLESEVELAM 625 MG TABLET PO SCH ×2 (09:42→20:41)
[2016-09-12] MEDS: PANTOPRAZOLE 40 MG VIAL IV SCH (09:42)
[2016-09-12] MEDS: BISOPROLOL 5 MG TABLET PO SCH (09:42)
[2016-09-12] MEDS: buPROPion SR 150 MG TABLET PO SCH (09:42)
[2016-09-12] MEDS: LATANOPROST 0.005% OPH SOLN 2.5 ML BOTTLE BOTH EYES SCH (09:42)
[2016-09-12] MEDS: CHOLECALCIFEROL 1,000 UNIT TABLET PO SCH (09:42)
[2016-09-12] MEDS: FLUTICASONE 50 MCG NASAL SPRAY 16 GM BOTTLE BOTH NARES SCH (09:45)
--- NOTE | 2016-09-12 12:42 | Hospitalist Progress Note ---
Assessment and Plan - Time spent with patient Time spent with patient: Greater than 30 minutes (1) S/P colectomy Status: Acute Assessment and plan: Tolerating a full diet. Patient had a colectomy for ischemic colitis. She has been stable since, will continue supportive care. Current Visit: Yes (2) Anemia Status: Acute Assessment and plan: Stable. Current Visit: Yes Hospitalist: Subjective Interval history: She reports feeling mildly better this morning. No overnight events. No nausea , vomiting. Exam - Constitutional Vitals: Period Temp Pulse Resp BP Sys/Harvey Pulse Ox Last 24 Hr 96.6 F-99.1 F 88-106 15-20 98-125/55-72 97-100 General appearance: no acute distress - Head Head exam: Present: normocephalic, atraumatic - Eye Eye exam: Present: EOMI Pupils: Present: MARANDA - ENT ENT exam: Present: normal exam - Neck Neck exam: Present: normal inspection - Respiratory Respiratory exam: Present: clear to auscultation bilaterally. Absent: rhonchi, wheezes - Cardiovascular Cardiovascular exam: Present: regular rate and rhythm. Absent: gallop, rubs, systolic murmur - GI/Abdominal GI/Abdominal exam: Present: normal bowel sounds, tenderness, soft, other ( Colostomy bag with output.). Absent: distended, firm, guarding, rebound - Extremities Exam Extremities exam: Present: normal inspection. Absent: calf tenderness, edema Results - Labs CBC & BMP: 09/12/16 04:19 09/12/16 04:20 Lab Results: I have reviewed the past 24 hour labs
[2016-09-12] MEDS: ENOXAPARIN 40 MG/0.4 ML SYRINGE SUBCUT SCH (18:29)
[2016-09-12] MEDS: ARIPiprazole 5 MG TABLET PO SCH (18:29)
[2016-09-13] MEDS: ALBUTEROL/IPRATROPIUM 3 ML NEB RESP TX SCH ×4 (00:27→19:14)
[2016-09-13] MEDS: DEXT 5% NACL 0.45% KCL 20 MEQ 20 MEQ/1,000 ML BAG IV SCH ×2 (00:48→09:30)
[2016-09-13] MEDS: PANTOPRAZOLE 40 MG VIAL IV SCH (08:45)
[2016-09-13] MEDS: FLUTICASONE 50 MCG NASAL SPRAY 16 GM BOTTLE BOTH NARES SCH (08:50)
[2016-09-13] MEDS: ASPIRIN EC 325 MG TABLET PO SCH (08:50)
[2016-09-13] MEDS: LORATADINE 10 MG TABLET PO SCH (08:50)
[2016-09-13] MEDS: MOISTURIZING CREAM (EUCERIN) 113 GM JAR TOP SCH ×2 (08:51→21:36)
[2016-09-13] MEDS: TRIAMCINOLONE 0.1% CREAM 15 GM TUBE TOP SCH (08:51)
[2016-09-13] MEDS: CHOLECALCIFEROL 1,000 UNIT TABLET PO SCH (08:52)
[2016-09-13] MEDS: CALCIUM (CARBONATE)/VITAMIN D 500 MG-200 UNIT TABLET PO SCH ×2 (08:52→21:34)
[2016-09-13] MEDS: buPROPion SR 150 MG TABLET PO SCH (08:53)
[2016-09-13] MEDS: COLESEVELAM 625 MG TABLET PO SCH ×2 (08:53→21:33)
[2016-09-13] MEDS: BISOPROLOL 5 MG TABLET PO SCH (08:53)
--- NOTE | 2016-09-13 10:28 | Hospitalist Progress Note ---
Assessment and Plan - Time spent with patient Time spent with patient: Greater than 30 minutes (1) S/P colectomy Status: Acute Assessment and plan: Tolerating a full diet. Patient had a colectomy for ischemic colitis. She has been stable since, will continue supportive care. Current Visit: Yes (2) Anemia Status: Acute Assessment and plan: Stable. Current Visit: Yes Hospitalist: Subjective Interval history: No complaints overnight events. Exam - Constitutional Vitals: Period Temp Pulse Resp BP Sys/Harvey Pulse Ox Last 24 Hr 97.1 F-98.7 F 88-108 16-20 98-140/54-78 96-99 General appearance: no acute distress - Head Head exam: Present: normocephalic, atraumatic - Eye Eye exam: Present: EOMI Pupils: Present: MARANDA - ENT ENT exam: Present: normal exam - Neck Neck exam: Present: normal inspection - Respiratory Respiratory exam: Present: clear to auscultation bilaterally. Absent: rhonchi, wheezes - Cardiovascular Cardiovascular exam: Present: regular rate and rhythm. Absent: gallop, rubs, systolic murmur - GI/Abdominal GI/Abdominal exam: Present: normal bowel sounds, distended, soft, other ( Colostomy bag, PARKER tube. Midline incision clean clear and intact). Absent: firm , guarding, tenderness, rebound - Extremities Exam Extremities exam: Present: normal inspection. Absent: calf tenderness, edema Results - Labs CBC & BMP: 09/12/16 04:19 09/12/16 04:20 Lab Results: I have reviewed the past 24 hour labs
--- NOTE | 2016-09-13 10:35 | Event Note ---
Overall she looks better. She is afebrile. She is maintained a mild tachycardia around 100. This is unchanged. She is not having chest pain or shortness of breath. The nurses of stop recording her urine output but she has had multiple voids in her diaper. Her BUN and creatinine are normal. She is tolerating a diet well.
[2016-09-13] MEDS: PANTOPRAZOLE 40 MG TABLET PO SCH (10:38)
[2016-09-13] MEDS: LATANOPROST 0.005% OPH SOLN 2.5 ML BOTTLE BOTH EYES SCH (10:38)
[2016-09-13] MEDS: ENOXAPARIN 40 MG/0.4 ML SYRINGE SUBCUT SCH (17:34)
[2016-09-13] MEDS: ARIPiprazole 5 MG TABLET PO SCH (17:34)
[2016-09-14] MEDS: ALBUTEROL/IPRATROPIUM 3 ML NEB RESP TX SCH ×4 (00:09→19:24)
--- NOTE | 2016-09-14 09:10 | Event Note ---
She looks good. She is certainly improved over the last several days. She is eating a regular tray and eating well. She is not having nausea or vomiting. She is afebrile and now has normal vital signs. Her tachycardia is resolved. Her abdomen is benign and she has good ileostomy output. Her incision looks okay. I see no signs of wound infection. I think we are at a point where she could be looking at discharge to a swing bed. We will get her PARKER drain out.
--- NOTE | 2016-09-14 10:03 | Hospitalist Progress Note ---
Assessment and Plan - Time spent with patient Time spent with patient: Greater than 30 minutes (1) S/P colectomy Status: Acute Assessment and plan: Tolerating a full diet. Patient had a colectomy for ischemic colitis. She has been stable since, will continue supportive care. Current Visit: Yes (2) Anemia Status: Acute Assessment and plan: Stable. Current Visit: Yes Hospitalist: Subjective Interval history: No complaints or overnight events. Exam - Constitutional Vitals: Period Temp Pulse Resp BP Sys/Harvey Pulse Ox Last 24 Hr 97.4 F-99.5 F 60-112 14-20 109-139/57-73 95-100 General appearance: no acute distress - Head Head exam: Present: normocephalic, atraumatic - Eye Eye exam: Present: EOMI Pupils: Present: MARANDA - ENT ENT exam: Present: normal exam - Neck Neck exam: Present: normal inspection - Respiratory Respiratory exam: Present: clear to auscultation bilaterally. Absent: rhonchi, wheezes - Cardiovascular Cardiovascular exam: Present: regular rate and rhythm. Absent: gallop, rubs, systolic murmur - GI/Abdominal GI/Abdominal exam: Present: normal bowel sounds, soft, other (Ileostomy bag present, PARKER drain.). Absent: distended, firm, guarding, tenderness, rebound - Extremities Exam Extremities exam: Present: normal inspection. Absent: calf tenderness, edema Results - Labs CBC & BMP: 09/12/16 04:19 09/12/16 04:20 Lab Results: I have reviewed the past 24 hour labs
[2016-09-14] MEDS: CHOLECALCIFEROL 1,000 UNIT TABLET PO SCH (10:27)
[2016-09-14] MEDS: LATANOPROST 0.005% OPH SOLN 2.5 ML BOTTLE BOTH EYES SCH (10:27)
[2016-09-14] MEDS: CALCIUM (CARBONATE)/VITAMIN D 500 MG-200 UNIT TABLET PO SCH ×2 (10:27→20:39)
[2016-09-14] MEDS: buPROPion SR 150 MG TABLET PO SCH (10:28)
[2016-09-14] MEDS: ASPIRIN EC 325 MG TABLET PO SCH (10:28)
[2016-09-14] MEDS: FLUTICASONE 50 MCG NASAL SPRAY 16 GM BOTTLE BOTH NARES SCH (10:28)
[2016-09-14] MEDS: TRIAMCINOLONE 0.1% CREAM 15 GM TUBE TOP SCH (10:28)
[2016-09-14] MEDS: COLESEVELAM 625 MG TABLET PO SCH ×2 (10:28→20:39)
[2016-09-14] MEDS: PANTOPRAZOLE 40 MG TABLET PO SCH (10:28)
[2016-09-14] MEDS: MOISTURIZING CREAM (EUCERIN) 113 GM JAR TOP SCH ×2 (10:28→20:39)
[2016-09-14] MEDS: LORATADINE 10 MG TABLET PO SCH (10:28)
[2016-09-14] MEDS: BISOPROLOL 5 MG TABLET PO SCH (10:28)
[2016-09-14] MEDS: ENOXAPARIN 40 MG/0.4 ML SYRINGE SUBCUT SCH (17:21)
[2016-09-14] MEDS: ARIPiprazole 5 MG TABLET PO SCH (17:21)
[2016-09-15 06:06] LABS: Basophils % 0.3 % (0.0-0.8); Eosinophils # 0.2 10*3/uL (0.0-0.87); Eosinophils % 1.6 % (0.00-10.9); Hematocrit 29.8 VOL% (35.7-47.0); Hemoglobin 9.4 GM/DL (12.0-16.0); Immature Granulocytes % 6.4 %; Immature Granulocytes Absolute 0.69 #; Lymphocytes # 1.6 10*3/uL (1.4-4.0); Lymphocytes % 15.2 % (21.3-54.2); Mean Corpuscular HGB Conc 31.5 GM/DL (32-36); Mean Corpuscular Hemoglobin 27 PG (27-34); Mean Corpuscular Volume 84.2 FL (87-102); Mean Platelet Volume 9.2 FL (9.6-12.0); Monocytes # 0.9 10*3/uL (0.11-0.8); Monocytes % 8.8 % (1.7-12.7); Neutrophils # 7.3 10*3/uL (1.4-7.4); Neutrophils % 67.7 % (38.7-73.9); Platelet Count 343 T/CUMM (130-400); Red Blood Count 3.54 MC/CUMM (3.8-5.5); Red Cell Distribution Width 13.1 % (9.3-17.3); White Blood Count 10.7 T/CUMM (4-12)
[2016-09-15 06:30] LABS: Band Neutrophils 2 % (0-10); Eosinophils 2 % (0-10); Hypochromasia Slight; Lymphocytes 13 % (20-55); Microcytosis 1+; Platelet Estimate Adequate; Segmented Neutrophils 73 % (50-85); Total Cells Counted 100
[2016-09-15 06:41] LABS: Calcium 9.3 MG/DL (8.5-10.1); Osmolality,Calculated 281.4 MOS/KG (273-304); Potassium 4.7 MMOL/L (3.5-5.1)
[2016-09-15] MEDS: ALBUTEROL/IPRATROPIUM 3 ML NEB RESP TX SCH ×4 (07:08→18:40)
[2016-09-15] MEDS: ASPIRIN EC 325 MG TABLET PO SCH (09:11)
[2016-09-15] MEDS: PANTOPRAZOLE 40 MG TABLET PO SCH (09:11)
[2016-09-15] MEDS: TRIAMCINOLONE 0.1% CREAM 15 GM TUBE TOP SCH (09:12)
[2016-09-15] MEDS: buPROPion SR 150 MG TABLET PO SCH (09:12)
[2016-09-15] MEDS: CHOLECALCIFEROL 1,000 UNIT TABLET PO SCH (09:12)
[2016-09-15] MEDS: COLESEVELAM 625 MG TABLET PO SCH ×2 (09:12→20:41)
[2016-09-15] MEDS: LATANOPROST 0.005% OPH SOLN 2.5 ML BOTTLE BOTH EYES SCH (09:12)
[2016-09-15] MEDS: LORATADINE 10 MG TABLET PO SCH (09:12)
[2016-09-15] MEDS: CALCIUM (CARBONATE)/VITAMIN D 500 MG-200 UNIT TABLET PO SCH ×2 (09:12→20:41)
[2016-09-15] MEDS: BISOPROLOL 5 MG TABLET PO SCH (09:12)
[2016-09-15] MEDS: MOISTURIZING CREAM (EUCERIN) 113 GM JAR TOP SCH ×2 (09:12→20:41)
[2016-09-15] MEDS: FLUTICASONE 50 MCG NASAL SPRAY 16 GM BOTTLE BOTH NARES SCH (09:12)
--- NOTE | 2016-09-15 10:07 | Event Note ---
She feels better. Her abdomen is benign and she is afebrile. We are looking at swing bed placement.
--- NOTE | 2016-09-15 10:26 | Discharge Summary ---
Hospital Course - Hospital Course Hospital Course: Ms. Odom was admitted with complaints of abdominal pain. 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 She also had a large left greater than right iliac nodes and nodular opacities with surrounding fat. Gastroenterology and surgery were both consulted. 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 She had complete abdominal lysis of adhesions. Patient required continue ventilator support postop, the patient was managed in the intensive care unit and pulmonary was consulted for ventilator management. Once successfully extubated , she was transferred to the floor for further observation and pathology results to return. Pathology report returned no mucosal lesions and early ischemic changes with bowel hemorrhage. Oncology was consulted regarding splenic findings on CT, and will follow up with the patient as an outpatient. Furthermore surgery will follow up the patient's ileostomy as an outpatient. By discharge she had met maximum benefit of hospitalization. She will be discharged to her inpatient rehab. I spent 45 minutes coordinating this discharge. - Time spent with patient Time with patient DS: Greater than 30 minutes Diagnosis - Discharge Diagnosis (1) S/P colectomy Status: Acute (2) Anemia Status: Acute Specialty Discharge - Follow Up or Referrals Follow up with: Travis Lee MD [Physician] - 09/23/16 2:00 pm Feliciano Gentile MD [Physician] - 10/13/16 2:00 pm (lab work at dr. gentile office on october 13 1:30 and then you will see the doctor.) Discharge Plan - Discharge Data Disposition: Disch/Xfer-Ipshort Term Hos Condition at Discharge: Stable Discharge Diet: advance to your usual diet Activity: resume usual activities as tolerated - Discharge Medications New Loratadine Tab [Claritin Tab] 10 mg PO DAILY tablet Pantoprazole Tab [Protonix Tab] 40 mg PO DAILY tablet Continue Cholecalciferol (Vitamin D3) [Vitamin D3] 5,000 unit PO 0645 Colesevelam [Welchol] 625 mg PO BID Diphenoxylate/Atrop 2.5-0.025 [Lomotil Tab] 1 - 2 tablet PO TID Latanoprost [Xalatan] 1 drop BOTH EYES 0645 buPROPion HCl [Bupropion HCl Sr] 150 mg PO 0645 Triamcinolone 0.1% Cream [Kenalog 0.1% Cream] 1 applic TOP 0645 Calcium (Carb)/Vit D 500-200 [Oscal 500 + D] 1 tablet PO 0645,1700 Bisoprolol Fumarate 5 mg PO 0645 Fluticasone 50 Mcg Nasal [place] [Flonase Nasal [place]] 1 spray BOTH NARES 0645 PRN PRN Reason: Allergy Symptoms Aspirin EC Tab 325 mg PO 0645 Moisturizing Cream (Eucerin) [Eucerin Cream] 1 applic TOP 0645,1700 ARIPiprazole [Abilify] 5 mg PO 1700 Pramoxine 1% Rectal Foam [Proctofoam 1% Foam] 1 applic TOP TID PRN PRN Reason: Hemorrhoids Discontinued Acetaminophen 325 - 650 mg PO Q4H PRN PRN Reason: ARTHRITIS PAIN Ondansetron HCl 4 mg PO Q6H PRN PRN Reason: Nausea/Vomiting Diclofenac Sodium [Diclofenac Sodium ER] 100 mg PO DAILY W/BREAKFAST Omeprazole [Prilosec] 20 mg PO 0645 Loratadine Tab [Claritin Tab] 10 mg PO 0645 PRN PRN Reason: Allergy Symptoms Loperamide Cap [Imodium Cap] 2 mg PO QID PRN PRN Reason: Diarrhea Methyl Salicylate/Menthol [Salonpas Pain Relieving Foam] 118 ml TOP DAILY PRN PRN Reason: Pain - Follow Up or Referral Follow Up: Travis Lee MD [Physician] - 09/23/16 2:00 pm Feliciano Gentile MD [Physician] - 10/13/16 2:00 pm (lab work at dr. gentile office on october 13 1:30 and then you will see the doctor.) - Forms/Instructions Instructions: Colostomy Care (DC) Exam - Constitutional Vitals: Period Temp Pulse Resp BP Sys/Harvey Pulse Ox Last 24 Hr 97.6 F-99.1 F 70-102 16-20 104-128/59-79 95-100 General appearance: normal weight, no acute distress - Head Head exam: Present: normal inspection, normocephalic, atraumatic - Eye Eye exam: Present: EOMI Pupils: Present: MARANDA - ENT ENT exam: Present: normal exam - Neck Neck exam: Present: normal inspection - Respiratory Respiratory exam: Present: clear to auscultation bilaterally. Absent: accessory muscle use, prolonged expiratory phase, wheezes - Cardiovascular Cardiovascular exam: Present: regular rate and rhythm. Absent: bradycardia, irregular rhythm, systolic murmur - GI/Abdominal GI/Abdominal exam: Present: normal bowel sounds, other. Absent: ascites, distended (Ileostomy bag), hypoactive bowel sounds, tenderness - Extremities Exam Extremities exam: Present: normal inspection Discharge Results Procedures and tests throughout hospitalization: Pending Orders 09/15/16 09:06 XR chest 1V portable Routine Urinalysis Routine Labs on day of discharge: Labs from last 24 hours 09/15/16 09/15/16 04:17 04:17 WBC 10.7 D RBC 3.54 L D Hgb 9.4 L Hct 29.8 L MCV 84.2 L MCH 27 MCHC 31.5 L RDW 13.1 Plt Count 343 D MPV 9.2 L Neut % (Auto) 67.7 Lymph % (Auto) 15.2 L Hill % (Auto) 8.8 Eos % (Auto) 1.6 Baso % (Auto) 0.3 Neut # (Auto) 7.3 Lymph # (Auto) 1.6 Hill # (Auto) 0.9 H Eos # (Auto) 0.2 Baso # (Auto) 0.0 Total Counted 100 Immature Gran % 6.4 Nucleated RBC % 0.0 Immature Gran # 0.69 Segmented Neutrophils 73 Band Neutrophils 2 Lymphocytes 13 L Monocytes 10 Eosinophils 2 Nucleated RBCs # 0.00 Platelet Estimate Adequate Hypochromasia Slight Microcytosis 1+ Sodium 140 Potassium 4.7 Chloride 104 Carbon Dioxide 28 Anion Gap 12.7 BUN 22 H Creatinine 0.90 GFR Calculation 60 BUN/Creatinine Ratio 24.00 H Glucose 106 Calculated Osmolality 281.4 Calcium 9.3 DS: Provider Date of admission: 09/05/16 13:05 Primary care physician: Saul Escalante MD Attending physician on admission: Jaqueline Nina MD Consults: 09/05/16 14:06 Consult to Physician [CONS] Routine Comment: Consulting Provider: Benedict Parra V When should Consulting Provider be notified: Now 09/05/16 15:15 Consult to Physician [CONS] Routine Comment: Consulting Provider: Travis Lee Consult to Specialist Group: Surgery When should Consulting Provider be notified: Now Person Notified: Dr. Lee Date Notified: 09/05/16 Time Notified: 15:16 09/05/16 15:17 Consult to Physician [CONS] Routine Comment: Consulting Provider: 09/05/16 21:01 Consult to Physician [CONS] Routine Comment: ventilator customer management specialist Provider: Valentin Marmolejo 09/09/16 12:32 Consult to Case Mgmt/Social Srvs [CONS] Routine Reason for Case Mgmt/Social Srvs: Discharge Planning 09/10/16 09:57 Consult to Physical Therapy [CONS] Routine Reason for Physical Therapy: Evaluate and Treat Discharging clinician: Meggan Grier MD Expected date of discharge: 09/16/16
--- NOTE | 2016-09-15 13:02 | Hospitalist Progress Note ---
Assessment and Plan - Time spent with patient Time spent with patient: Greater than 30 minutes (1) Leukocytosis Status: Acute Assessment and plan: CXray, UA. Current Visit: Yes (2) S/P colectomy Status: Acute Assessment and plan: Tolerating a full diet. Patient had a colectomy for ischemic colitis. Pathology reveals no neoplasm. She has been stable since, will continue supportive care. I have asked gastroenterology and surgery to reevaluate the patient. She may require a repeat CT and there was talk of a PET scan regarding her pelvic mass and this appears to have not been addressed. Furthermore the CT reveals splenic hypodensities that are concerning for metastatic disease. Will ask oncology to evaluate. Current Visit: Yes (3) Anemia Status: Acute Assessment and plan: Stable. Current Visit: Yes (4) Hydronephrosis Status: Acute Assessment and plan: Seen on initial CT will obtain a renal ultrasound. Furthermore will obtain urinalysis. Current Visit: Yes Hospitalist: Subjective Interval history: In reviewing the patient's history it appears there was some talk by gastroenterology regarding a PET scan for evaluation of a pelvic mass however gastroenterology has not seen the patient since. Furthermore CT scan appeared to show possible splenic metastasis. I am aware that the pathology report reveals no colonic neoplasm. Will hold off on discharge and ask gastroenterology and surgery to reevaluate the patient. Exam - Constitutional Vitals: Period Temp Pulse Resp BP Sys/Harvey Pulse Ox Last 24 Hr 96.0 F-99.1 F 70-95 16-20 94-128/59-79 92-100 General appearance: no acute distress - Head Head exam: Present: normocephalic, atraumatic - Eye Eye exam: Present: EOMI Pupils: Present: MARANDA - ENT ENT exam: Present: normal exam - Neck Neck exam: Present: normal inspection - Respiratory Respiratory exam: Present: clear to auscultation bilaterally. Absent: rhonchi, wheezes - Cardiovascular Cardiovascular exam: Present: regular rate and rhythm. Absent: gallop, rubs, systolic murmur - GI/Abdominal GI/Abdominal exam: Present: normal bowel sounds, soft, other (Ileostomy midline incision). Absent: distended, firm, guarding, tenderness, rebound - Extremities Exam Extremities exam: Present: normal inspection. Absent: calf tenderness, edema Results - Labs CBC & BMP: 09/15/16 04:17 09/15/16 04:17 Lab Results: I have reviewed the past 24 hour labs Specialty Discharge - Follow Up or Referrals Follow up with: Travis Lee MD [Physician] - 09/23/16 2:00 pm
--- NOTE | 2016-09-15 14:17 | XRay Report ---
History: Leukocytosis Date: 09/15/2016 Study: Chest x-ray AP portable Comparison exam: September 06, 2016 The endotracheal and nasogastric tubes have been removed since the previous study. There is continued cardiomegaly. The mediastinal contours are unchanged. There is mild aortic arch calcification. The lungs and pleural spaces are clear. The pulmonary vasculature is not engorged. There is no gross pleural effusion. There are some scattered emphysematous changes in the lungs. Old rib fractures noted on the right. Osseous structures are unchanged. Impression: No acute cardiopulmonary process compared to the previous study. Interval tube removal PROCEDURE INTERPRETED AT [facility] DEPARTMENT OF RADIOLOGY Final Report Signed by: Dr. Emma Morrison
--- NOTE | 2016-09-15 15:00 | Ultrasound Report ---
Renal ultrasound Indication: Hydronephrosis Comparison: None available Findings: Kidneys are normal in size. There is a right renal cyst that measures 1.4 x 1.3 x 1.3 cm near the renal pelvis. Remaining renal echogenicity appears within normal limits. No hydronephrosis or nephrolithiasis is seen. The right renal length is 10.6 cm. The left renal length is 10.4 cm. No free fluid or other abnormality is seen. Impression: Right renal cyst. No hydronephrosis is present on today's exam. No other evidence of abnormality demonstrated. Ultrasound images stored and captured. PROCEDURE INTERPRETED AT [facility] DEPARTMENT OF RADIOLOGY Final Report Signed by: Dr. Osman Quigley
[2016-09-15] MEDS: ENOXAPARIN 40 MG/0.4 ML SYRINGE SUBCUT SCH (17:32)
[2016-09-15] MEDS: ARIPiprazole 5 MG TABLET PO SCH (17:32)
[2016-09-16] MEDS: ALBUTEROL/IPRATROPIUM 3 ML NEB RESP TX SCH ×4 (00:10→18:40)
[2016-09-16 06:33] LABS: Apearance,Urine CLEAR (Clear); Bilirubin,Urine Negative (Negative); Blood, Urine Negative (Negative); Glucose,Urine (UA) Negative (Negative); Ketones,Urine Negative (Negative); Mucus,Urine Occasional /LPF (Occasional); Nitrite,Urine Negative (Negative); Protein,Urine Negative; RBC,Urine <1 /HPF (0-4); Squamous Epithelial Cell,Urine Occasional /HPF (0-10); Urine Color Yellow (Yellow); Urine Specific Gravity 1.015 (1.001-1.035); Urine Urobilinogen < 2.0 EU/DL (0.2-1.0); WBC,Urine 1 /HPF (0-6)
[2016-09-16] MEDS: LORATADINE 10 MG TABLET PO SCH (08:57)
[2016-09-16] MEDS: ASPIRIN EC 325 MG TABLET PO SCH (08:57)
[2016-09-16] MEDS: CHOLECALCIFEROL 1,000 UNIT TABLET PO SCH (08:58)
[2016-09-16] MEDS: PANTOPRAZOLE 40 MG TABLET PO SCH (08:58)
[2016-09-16] MEDS: buPROPion SR 150 MG TABLET PO SCH (08:58)
[2016-09-16] MEDS: CALCIUM (CARBONATE)/VITAMIN D 500 MG-200 UNIT TABLET PO SCH ×2 (08:58→21:00)
[2016-09-16] MEDS: COLESEVELAM 625 MG TABLET PO SCH ×2 (08:59→21:00)
[2016-09-16] MEDS: BISOPROLOL 5 MG TABLET PO SCH (08:59)
[2016-09-16] MEDS: FLUTICASONE 50 MCG NASAL SPRAY 16 GM BOTTLE BOTH NARES SCH (08:59)
[2016-09-16] MEDS: LATANOPROST 0.005% OPH SOLN 2.5 ML BOTTLE BOTH EYES SCH (09:05)
[2016-09-16] MEDS: TRIAMCINOLONE 0.1% CREAM 15 GM TUBE TOP SCH (11:33)
[2016-09-16] MEDS: MOISTURIZING CREAM (EUCERIN) 113 GM JAR TOP SCH ×2 (11:33→21:00)
--- NOTE | 2016-09-16 15:17 | Hospitalist Progress Note ---
Assessment and Plan - Time spent with patient Time spent with patient: Greater than 30 minutes (1) S/P colectomy Status: Acute Assessment and plan: Tolerating a full diet. Patient had a colectomy for ischemic colitis. Pathology reveals no neoplasm. She has been stable since, will continue supportive care. I have asked gastroenterology and surgery to reevaluate the patient. She may require a repeat CT and there was talk of a PET scan regarding her pelvic mass and this appears to have not been addressed. Furthermore the CT reveals splenic hypodensities that are concerning for metastatic disease. Oncology has evaluated patient and will follow up with her as an outpatient. She will also follow-up with surgery. Current Visit: Yes (2) Anemia Status: Acute Assessment and plan: Stable. Current Visit: Yes Hospitalist: Subjective Interval history: Patient has no complaints. No overnight events. She has been evaluated by oncology. Patient will be discharged today. Discharge summary was performed however saved as yesterday. Exam - Constitutional Vitals: Period Temp Pulse Resp BP Sys/Harvey Pulse Ox Last 24 Hr 97.1 F-97.7 F 82-102 16-20 98-110/57-70 94-100 General appearance: no acute distress - Head Head exam: Present: normocephalic, atraumatic - Eye Eye exam: Present: EOMI Pupils: Present: MARANDA - ENT ENT exam: Present: normal exam - Neck Neck exam: Present: normal inspection - Respiratory Respiratory exam: Present: clear to auscultation bilaterally. Absent: rhonchi, wheezes - Cardiovascular Cardiovascular exam: Present: regular rate and rhythm. Absent: gallop, rubs, systolic murmur - GI/Abdominal GI/Abdominal exam: Present: normal bowel sounds, soft, other (Ileostomy bag with output.). Absent: distended, firm, guarding, tenderness, rebound - Extremities Exam Extremities exam: Present: normal inspection. Absent: calf tenderness, edema Results - Labs CBC & BMP: 09/15/16 04:17 09/15/16 04:17 Lab Results: I have reviewed the past 24 hour labs Specialty Discharge - Follow Up or Referrals Follow up with: Travis Lee MD [Physician] - 09/23/16 2:00 pm Feliciano Gentile MD [Physician] - 10/13/16 2:00 pm (lab work at dr. gentile office on daphnie 18 1:30 and then you will see the doctor.)
--- NOTE | 2016-09-16 15:43 | Event Note ---
She looks good. She is afebrile with stable vital signs. Her abdomen is benign. She is taking p.o. I think she can go to a swing bed when ready medically.
[2016-09-16] MEDS: ENOXAPARIN 40 MG/0.4 ML SYRINGE SUBCUT SCH (18:10)
[2016-09-16] MEDS: ARIPiprazole 5 MG TABLET PO SCH (18:10)
[2016-09-17] MEDS: ALBUTEROL/IPRATROPIUM 3 ML NEB RESP TX SCH ×2 (00:45→07:15)
--- NOTE | 2016-09-17 07:13 | Event Note ---
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 She is tolerating her diet. She is afebrile. She is set to go to a swing bed today. Oncology consult was ordered by the medicine service yesterday. Apparently they plan to see her as an outpatient. Repeat renal ultrasound shows no significant hydronephrosis. Physical exam Afebrile with normal vital signs Pulmonary exam reveals clear bilaterally Heart is regular with no murmurs Abdomen is soft and less distended than yesterday. There are normal bowel sounds. The ostomy is productive of stool and air. There is a small amount of stool coming from the mucous fistula. There is some intermittent erythema of the incision of a small amount of drainage in the midportion of the incision. There is no further expressible drainage. There is no fluctuance to the incision. Labs None new Imaging None new Assessment and plan Add Ivette and Sheldon for wound cellulitis Transfer to swing bed
[2016-09-17] MEDS ORDERED: LEVOFLOXACIN 750 MG TABLET PO SCH (07:30)
[2016-09-17 08:52] VITALS: BP 106/66
[2016-09-17] MEDS ORDERED: metroNIDAZOLE 500 MG TABLET PO SCH (09:00)
[2016-09-17] MEDS: CHOLECALCIFEROL 1,000 UNIT TABLET PO SCH (09:36)
[2016-09-17] MEDS: COLESEVELAM 625 MG TABLET PO SCH (09:36)
[2016-09-17] MEDS: BISOPROLOL 5 MG TABLET PO SCH (09:36)
[2016-09-17] MEDS: CALCIUM (CARBONATE)/VITAMIN D 500 MG-200 UNIT TABLET PO SCH (09:36)
[2016-09-17] MEDS: FLUTICASONE 50 MCG NASAL SPRAY 16 GM BOTTLE BOTH NARES SCH (09:37)
[2016-09-17] MEDS: LORATADINE 10 MG TABLET PO SCH (09:37)
[2016-09-17] MEDS: buPROPion SR 150 MG TABLET PO SCH (09:37)
[2016-09-17] MEDS: ASPIRIN EC 325 MG TABLET PO SCH (09:37)
[2016-09-17] MEDS: PANTOPRAZOLE 40 MG TABLET PO SCH (09:37)
[2016-09-17] MEDS: MOISTURIZING CREAM (EUCERIN) 113 GM JAR TOP SCH (09:39)
[2016-09-17] MEDS: TRIAMCINOLONE 0.1% CREAM 15 GM TUBE TOP SCH (09:39)
[2016-09-17] MEDS: LATANOPROST 0.005% OPH SOLN 2.5 ML BOTTLE BOTH EYES SCH (10:10)
--- NOTE | 2016-09-17 10:41 | Hospitalist Progress Note ---
Assessment and Plan - Time spent with patient Time spent with patient: Greater than 30 minutes (1) S/P colectomy Status: Acute Assessment and plan: Patient is ready for discharge. Will write a physical prescription for Levaquin and Clindamycin for 10 days. D/C today. Current Visit: Yes (2) Anemia Status: Acute Assessment and plan: Stable. Current Visit: Yes Hospitalist: Subjective Interval history: Patient is ready for discharge. Exam - Constitutional Vitals: Period Temp Pulse Resp BP Sys/Harvey Pulse Ox Last 24 Hr 96.5 F-98.4 F 84-102 16-20 96-120/66-77 94-100 General appearance: no acute distress - Head Head exam: Present: normocephalic, atraumatic - Eye Eye exam: Present: EOMI Pupils: Present: MARANDA - ENT ENT exam: Present: normal exam - Neck Neck exam: Present: normal inspection - Respiratory Respiratory exam: Present: clear to auscultation bilaterally. Absent: rhonchi, wheezes - Cardiovascular Cardiovascular exam: Present: regular rate and rhythm. Absent: gallop, rubs, systolic murmur - GI/Abdominal GI/Abdominal exam: Present: normal bowel sounds, soft, other (abdominal incision with liss, mild cellulitis and small amount of drainage). Absent: distended, firm, guarding, tenderness, rebound - Extremities Exam Extremities exam: Present: normal inspection. Absent: calf tenderness, edema Results - Labs CBC & BMP: 09/15/16 04:17 09/15/16 04:17 Lab Results: I have reviewed the past 24 hour labs Specialty Discharge - Follow Up or Referrals Follow up with: Travis Lee MD [Physician] - 09/23/16 2:00 pm Feliciano Gentile MD [Physician] - 10/13/16 2:00 pm (lab work at dr. gentile office on october 13 1:30 and then you will see the doctor.)
== END 2016-09-17 10:40 | disposition swing bed (61) | DRG 330 ==
LOC: N.ED 09:12 → N.2E 13:05 → SUATTDRO 13:05 → N.2E 13:24 → N.ICU 18:41 → N.3E 09-08 13:59
PROVIDERS: ADMIT Internal Medicine; ATTEND Internal Medicine

== ENCOUNTER 2016-11-11 18:04 | Inpatient (IN) ==
[2016-11-11] MEDS ORDERED: SODIUM CHLORIDE 0.9% 500 ML IV STA (18:23)
[2016-11-11] MEDS ORDERED: ONDANSETRON 4 MG/2 ML VIAL IV STA (18:23)
[2016-11-11] MEDS ORDERED: ONDANSETRON 4 MG/2 ML VIAL ONE (18:27)
--- NOTE | 2016-11-11 18:58 | CT Report ---
Referring physician: Gumaro Hayden EXAM: CT abdomen and pelvis without contrast DATE: 11/11/2016 COMPARISON: 10/27/2016 REASON: Abdominal pain with nausea and vomiting TECHNIQUE: Axial images of the abdomen and pelvis were obtained without the use of contrast. Coronal and sagittal reformatted images were also provided. Total DLP is 361.80 mGy*cm. FINDINGS: Chronic scarring/atelectasis at the lung bases. Elongation of the right lobe of the liver with no masses, dilated ducts, or calcified gallstones. The spleen remains borderline in size. Residual ill-defined hypodensities in the spleen. The pancreas and adrenal glands are stable in appearance. Cortical scarring kidneys with 4.7 mm hyperdense finding in the upper pole of the right kidney. Additional small cysts are noted. No renal or ureteral calculi are identified. Calcification in the wall of the nondilated abdominal aorta. Limited evaluation of bowel without oral contrast. Progressive gaseous distention of the small bowel with right sided ileostomy. The more distal small bowel appears less dilated. Also the patient has a mucous fistula in the left lower quadrant with little change in the mass effect in the pelvis. The hypodensities noted in the left sided pelvic mass are less well defined on these noncontrast scans. There is residual fluid and soft tissues findings in the presacral space with minimal free fluid. No free air is identified. More decompressed urinary bladder. Degenerative changes are noted. Reported prior hysterectomy. IMPRESSION: Prior partial colon resection with right-sided ileostomy and left lower quadrant mucous fistula. Progressive dilatation of the small bowel with transition zone which developing SBO, enteritis, ileus, etc. Limited evaluation of the pelvis without contrast with fairly stable pelvic mass. Infectious process cannot be excluded. Reported prior hysterectomy. Follow-up x-ray may be helpful for further evaluation. The CT exam was performed using one or more of the following dose reduction techniques: Automated exposure control and adjustment of the mA and/or kV according to patient size. PROCEDURE INTERPRETED AT [facility] DEPARTMENT OF RADIOLOGY Final Report Signed by: Dr. Crystal Cordero
[2016-11-11 19:08] LABS: Basophils % 0.2 % (0.0-0.8); Eosinophils # 0.1 10*3/uL (0.0-0.87); Eosinophils % 0.7 % (0.00-10.9); Hematocrit 31.4 VOL% (35.7-47.0); Immature Granulocytes % 0.6 %; Immature Granulocytes Absolute 0.05 #; Lymphocytes # 0.9 10*3/uL (1.4-4.0); Lymphocytes % 10.2 % (21.3-54.2); Mean Corpuscular HGB Conc 31.8 GM/DL (32-36); Mean Corpuscular Hemoglobin 26 PG (27-34); Mean Corpuscular Volume 81.6 FL (87-102); Mean Platelet Volume 8.5 FL (9.6-12.0); Monocytes # 0.5 10*3/uL (0.11-0.8); Monocytes % 5.9 % (1.7-12.7); Neutrophils # 6.9 10*3/uL (1.4-7.4); Neutrophils % 82.4 % (38.7-73.9); Platelet Count 166 T/CUMM (130-400); Red Blood Count 3.85 MC/CUMM (3.8-5.5); Red Cell Distribution Width 14.4 % (9.3-17.3); White Blood Count 8.3 T/CUMM (4-12)
[2016-11-11 19:13] LABS: Apearance,Urine CLOUDY (Clear); Bacteria,Urine Many /HPF (Few); Bilirubin,Urine Negative (Negative); Blood, Urine Negative (Negative); Glucose,Urine (UA) Negative (Negative); Ketones,Urine Negative (Negative); Mucus,Urine Moderate /LPF (Occasional); Nitrite,Urine Negative (Negative); Protein,Urine 100 MG/DL; RBC,Urine 6 /HPF (0-4); Urine Color Yellow (Yellow); Urine Specific Gravity 1.014 (1.001-1.035); Urine Urobilinogen < 2.0 EU/DL (0.2-1.0); WBC,Urine 683 /HPF (0-6)
[2016-11-11] MEDS ORDERED: MORPHINE 2 MG/1 ML SYRINGE IV PRN (19:20)
[2016-11-11] MEDS ORDERED: PROMETHAZINE 25 MG/1 ML VIAL IM PRN (19:20)
[2016-11-11] MEDS ORDERED: cefTRIAXone 1,000 MG in SODIUM CHLORIDE 0.9% 100 ML IV STA (19:23)
--- NOTE | 2016-11-11 19:25 | Emergency Department Note ---
IDarek Emily, am scribing for, and in the presence of, Gumaro Hayden MD 18: 31. IJackelyn Kevin Lee, MD, personally performed the services described in this documentation, ascribed by Shannan Oswald in my presence, and it is both accurate and complete 914 . 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 Pt had some tomato juice and hamburger and 20 minutes after she projectile emesis. Pt had colectomy in March 2016, hospitalized after for 2-3 weeks, then sent to swing bed. long term operations support representative states she had a SBO then, and distended belly. Pt had colostomy placed recently under Dr. Wilcox. Onset (ago): hour(s) Consistency: constant, intermittent Severity: mild, moderate Severity scale (1-10): 4 Quality: aching Allergies/Adverse Reactions: Allergies Allergy/AdvReac Type Severity Reaction Status Date / Time Sulfa (Sulfonamide Allergy HIVES Verified 11/11/16 18:12 Antibiotics) Home Medications: Home Medications Medication Instructions Recorded Confirmed Type ARIPiprazole [Abilify] 5 mg PO DAILY@1700 09/05/16 11/06/16 History Aspirin EC Tab 325 mg PO DAILY 09/05/16 11/06/16 History Bisoprolol Fumarate 5 mg PO DAILY 09/05/16 11/06/16 History Calcium (Carb)/Vit D 500-200 1 tablet PO BID@0645,1700 09/05/16 11/06/16 History [Oscal 500 + D] Cholecalciferol (Vitamin D3) 5,000 unit PO DAILY 09/05/16 11/06/16 History [Vitamin D3] Colesevelam [Welchol] 625 mg PO BID 09/05/16 11/06/16 History Fluticasone 50 Mcg Nasal [place] 1 spray BOTH NARES BID 09/05/16 11/06/16 History [Flonase Nasal [place]] Latanoprost [Xalatan] 1 drop BOTH EYES DAILY 09/05/16 11/06/16 History buPROPion HCl [Bupropion HCl Sr] 150 mg PO DAILY 09/05/16 11/06/16 History Loratadine Tab [Claritin Tab] 10 mg PO DAILY tablet 09/15/16 11/06/16 Rx Pantoprazole Tab [Protonix Tab] 40 mg PO DAILY tablet 09/15/16 11/06/16 Rx Review of System - Review of System 12 point system: reviewed and no additional remarkable complaints except as stated - Review of System Constitutional: Absent: fever Respiratory: Absent: respiratory distress Cardiovascular: Absent: chest pain Gastrointestinal: Present: nausea, vomiting. Absent: abdominal pain Musculoskeletal: Absent: arm pain, back pain Skin: Absent: rash Neurological: Absent: headache Medical,Surgical,& Family Hx - Medical History Cardio: History of: Hypertension, PVD, Cardiovascular Problems (murmur) Psychological: History of: Anxiety Disorders, Bipolar Disorder Neurology: No history of: Seizures HEENT: History of: Eye Problem (reading glasses) No history of: Glaucoma Respiratory: History of: Intubation (in August of 2016 for surgery) Gastrointestinal: History of: Bowel Obstruction, Diverticulitis/ Diverticulosis , GERD, Hemorrhoids Musculoskeletal: History of: Musculoskeletal Problems (osteoarthritis in knees) Other: History of: Miscellaneous Medical Problems (Moderate intillectual delay) - Surgical History HEENT Surgeries: Surgical HX of: Eye Surgery (cataract surgery) Abdominal Surgeries: Surgical HX of: Abdominal Surgery (colonectomy), Colonoscopy Reproductive Surgeries: Surgical HX of;: Hysterectomy - Family History Family History: Reports;: Family Cancer (mother - colon), Family Heart Disease ( father) - Social History Smoking Status: Never smoker Marital Status: Single Lives With:: jail Exam Vital Signs: Vital Signs Temperature 98.1 F 11/11/16 18:30 Pulse Rate 85 11/11/16 18:30 Respiratory Rate 20 11/11/16 18:30 Blood Pressure 112/87 11/11/16 18:30 O2 Sat by Pulse Oximetry 100 11/11/16 18:30 - General General appearance: alert, in no apparent distress - Head Head exam: Present: atraumatic, normocephalic - Eye Eye exam: Present: PERRL, EOMI - ENT ENT exam: Present: mucous membranes moist. Absent: mucous membranes dry - Neck Neck exam: Present: full ROM. Absent: tenderness - Chest Chest inspection: Present: symmetric chest wall rise. Absent: tenderness - Respiratory Respiratory exam: Present: normal lung sounds bilaterally. Absent: respiratory distress - Cardiovascular Cardiovascular exam: Present: regular rate, normal rhythm, normal heart sounds - Abdominal Exam Abdominal exam: Present: soft, other (stool in colostomy bag). Absent: distention, tenderness, guarding, rebound - Extremities Exam Extremities exam: Present: full ROM. Absent: tenderness, pedal edema - Neurological Exam Neurological exam: Present: alert, oriented X3, CN II-XII intact. Absent: motor sensory deficit - Psychiatric Psychiatric exam: Present: normal affect, anxious (mildly) - Skin Skin exam: Present: warm, dry Course Course Narrative: will admit to dr wilcox for further care and treatment Results - Labs CBC & BMP: 11/11/16 18:39 Lab Results: I have reviewed the patients labs Labs: Laboratory Tests 11/11/16 11/11/16 18:23 18:39 WBC 8.3 RBC 3.85 Hgb 10.0 L Hct 31.4 L MCV 81.6 L MCH 26 L MCHC 31.8 L Plt Count 166 MPV 8.5 L Neut % (Auto) 82.4 H Lymph % (Auto) 10.2 L Lymph # (Auto) 0.9 L Urine Color Yellow Urine Appearance Cloudy Urine pH 5.0 Ur Specific [place] 1.014 Urine Protein 100 Urine Blood Negative Urine Nitrate Negative Urine Urobilinogen < 2.0 H Urine Leukocytes Large H Urine RBC 6 Urine WBC 683 Urine WBC Clumps Many Urine Bacteria Many Urine Mucus Moderate - Diagnostic Findings Procedure: CT Abdomen and Pelvis: image reviewed by me (see report) Disposition Clinical Impression: Small bowel obstruction, UTI (urinary tract infection) Case discussed with: patient Disposition: Still a Patient Condition: Stable
[2016-11-11 19:28] LABS: Calcium 8.7 MG/DL (8.5-10.1); Osmolality,Calculated 289.1 MOS/KG (273-304); Potassium 4.6 MMOL/L (3.5-5.1)
[2016-11-11] MEDS ORDERED: LACTATED RINGERS 1,000 ML IV ONE (19:29)
[2016-11-11] MEDS ORDERED: cefTRIAXone 1,000 MG VIAL ONE (19:35)
[2016-11-11] MEDS ORDERED: SODIUM CHLORIDE 0.9% 100 ML IV ONE (19:36)
[2016-11-11] MEDS ORDERED: BENZOCAINE/BUTAMBEN/TETRACAINE SPRAY 20 GM CAN TOP ONE (19:40)
--- NOTE | 2016-11-11 19:43 | General Surg History&Physical ---
Assessment and Plan (1) Small bowel obstruction Status: Acute Assessment and plan: Patient will be treated with NG tube decompression and IV fluids. We will obtain a small bowel series with Gastrografin in the morning Current Visit: Yes (2) UTI (urinary tract infection) Status: Acute Assessment and plan: This patient has evidence of urinary tract infection and she was given Rocephin in the ER. We will treated with cefoxitin overnight in the hospital and follow- up on cultures. Current Visit: Yes History of Present Illness Chief complaint: Nausea and vomiting History of present illness: Ms. Odom is a 61 year old female with history of total abdominal colectomy and end ileostomy with mucous fistula in August 2016 who presents to the ER with abdominal distention with nausea and vomiting that started today. She has had some thick ostomy output but it is decreased during the day today per the retirement nurses. The patient presents with vomiting and was evaluated with CT scan which demonstrated evidence of a small bowel obstruction with a caliber change in the small bowel. She is going to be admitted to the hospital for IV fluid resuscitation and small bowel series in the morning. An NG tube was placed in the ER and her stomach was decompressed and will be continued overnight. Home Medications Medication Instructions Recorded Confirmed Type ARIPiprazole [Abilify] 5 mg PO DAILY@1700 09/05/16 11/06/16 History Aspirin EC Tab 325 mg PO DAILY 09/05/16 11/06/16 History Bisoprolol Fumarate 5 mg PO DAILY 09/05/16 11/06/16 History Calcium (Carb)/Vit D 500-200 1 tablet PO BID@0645,1700 09/05/16 11/06/16 History [Oscal 500 + D] Cholecalciferol (Vitamin D3) 5,000 unit PO DAILY 09/05/16 11/06/16 History [Vitamin D3] Colesevelam [Welchol] 625 mg PO BID 09/05/16 11/06/16 History Fluticasone 50 Mcg Nasal [place] 1 spray BOTH NARES BID 09/05/16 11/06/16 History [Flonase Nasal [place]] Latanoprost [Xalatan] 1 drop BOTH EYES DAILY 09/05/16 11/06/16 History buPROPion HCl [Bupropion HCl Sr] 150 mg PO DAILY 09/05/16 11/06/16 History Loratadine Tab [Claritin Tab] 10 mg PO DAILY tablet 09/15/16 11/06/16 Rx Pantoprazole Tab [Protonix Tab] 40 mg PO DAILY tablet 09/15/16 11/06/16 Rx Allergies Allergy/AdvReac Type Severity Reaction Status Date / Time Sulfa (Sulfonamide Allergy HIVES Verified 11/11/16 18:12 Antibiotics) Medical,Surgical,& Family Hx - Medical History Cardio: History of: Hypertension, PVD, Cardiovascular Problems (murmur) Psychological: History of: Anxiety Disorders, Bipolar Disorder Neurology: No history of: Seizures HEENT: History of: Eye Problem (reading glasses) No history of: Glaucoma Respiratory: History of: Intubation (in August of 2016 for surgery) Gastrointestinal: History of: Bowel Obstruction, Diverticulitis/ Diverticulosis , GERD, Hemorrhoids Musculoskeletal: History of: Musculoskeletal Problems (osteoarthritis in knees) Other: History of: Miscellaneous Medical Problems (Moderate intillectual delay) - Surgical History HEENT Surgeries: Surgical HX of: Eye Surgery (cataract surgery) Abdominal Surgeries: Surgical HX of: Abdominal Surgery (colonectomy), Colonoscopy Reproductive Surgeries: Surgical HX of;: Hysterectomy - Family History Family History: Reports;: Family Cancer (mother - colon), Family Heart Disease ( father) - Social History Smoking Status: Never smoker Exam - Constitutional Vitals: Period Temp Pulse Resp BP Sys/Harvey Pulse Ox Last 24 Hr 98.1 F-98.1 F 75-85 19-22 109-112/66-87 98-100 General appearance: normal weight, no acute distress - Head Head exam: Present: normal inspection, normocephalic - Eye Eye exam: Present: EOMI. Absent: scleral icterus Pupils: Present: MARANDA - ENT ENT exam: Present: normal exam Mouth exam: Present: normal external inspection, normal voice - Neck Neck exam: Present: normal inspection, trachea midline - Respiratory Respiratory exam: Present: clear to auscultation bilaterally. Absent: accessory muscle use, chest wall tenderness - Cardiovascular Cardiovascular exam: Present: RRR. Absent: systolic murmur, tachycardia - GI/Abdominal GI/Abdominal exam: Present: distended, hypoactive bowel sounds, tenderness ( Minimal diffuse tenderness with no peritoneal signs), soft. Absent: rebound - Extremities Exam Extremities exam: Present: normal inspection, normal capillary refill - Back Exam Back exam: Present: normal inspection - Neurological Exam Neurological exam: Present: alert, oriented X3 Speech: Present: normal - Skin Skin exam: Present: normal color, warm - Constitutional Constitutional: Present: as per HPI - EENT Nose, mouth and throat: Present: as per HPI - Cardiovascular Cardiovascular: Present: as per HPI - Respiratory Respiratory: Present: as per HPI - Gastrointestinal Gastrointestinal: Present: as per HPI - Genitourinary Genitourinary: Present: as per HPI - Musculoskeletal Musculoskeletal: Present: as per HPI - Neurological Neurological: Present: as per HPI - Endocrine Endocrine: Present: as per HPI Hematologic/Lymphatic: Present: as per HPI Results - Labs CBC & BMP: 11/11/16 18:39 11/11/16 18:39 - Diagnostic Findings Procedure: CT Abdomen and Pelvis: image reviewed by me, report reviewed by me ( Small bowel obstruction)
[2016-11-11] MEDS: DEXTROSE 5% NACL 0.45% 1,000 ML IV SCH (21:30)
[2016-11-11] MEDS: cefOXitin 1,000 MG in SODIUM CHLORIDE 0.9% 100 ML IV SCH (23:46)
[2016-11-11] MEDS: COLESEVELAM 625 MG TABLET PO SCH (23:54)
[2016-11-11] MEDS: FLUTICASONE 50 MCG NASAL SPRAY 16 GM BOTTLE BOTH NARES SCH (23:55)
[2016-11-12] MEDS: ONDANSETRON 4 MG/2 ML VIAL IV PRN (01:47)
[2016-11-12] MEDS: DEXTROSE 5% NACL 0.45% 1,000 ML IV SCH ×2 (07:25→10:47)
[2016-11-12] MEDS: CALCIUM (CARBONATE)/VITAMIN D 500 MG-200 UNIT TABLET PO SCH ×2 (07:46→16:01)
[2016-11-12] MEDS: PANTOPRAZOLE 40 MG TABLET PO SCH (08:26)
[2016-11-12] MEDS: LORATADINE 10 MG TABLET PO SCH (08:26)
[2016-11-12] MEDS: ASPIRIN EC 325 MG TABLET PO SCH (08:26)
[2016-11-12] MEDS: CHOLECALCIFEROL 1,000 UNIT TABLET PO SCH (08:27)
[2016-11-12] MEDS: buPROPion SR 150 MG TABLET PO SCH (08:27)
[2016-11-12] MEDS: BISOPROLOL 5 MG TABLET PO SCH (08:27)
[2016-11-12] MEDS: COLESEVELAM 625 MG TABLET PO SCH ×2 (08:27→21:37)
[2016-11-12] MEDS: PANTOPRAZOLE 40 MG VIAL IV SCH (08:28)
[2016-11-12] MEDS: cefOXitin 1,000 MG in SODIUM CHLORIDE 0.9% 100 ML IV SCH ×3 (08:28→23:26)
[2016-11-12] MEDS: FLUTICASONE 50 MCG NASAL SPRAY 16 GM BOTTLE BOTH NARES SCH ×2 (09:28→21:34)
[2016-11-12] MEDS: LATANOPROST 0.005% OPH SOLN 2.5 ML BOTTLE BOTH EYES SCH (09:28)
--- NOTE | 2016-11-12 12:45 | Fluoroscopy Report ---
[place] small bowel follow through Indication: Small bowel obstruction. Right lower quadrant ileostomy. NG tube present. Small bowel follow-through: Gastrografin was infused via NG tube into the stomach. Over the course of 2 hours, sequential images of the abdomen were obtained. Findings: At 1 hour, opacification of the stomach and most of the small bowel is noted. However, it takes 2 hours until Gastrografin collects within the right lower quadrant ileostomy bag. No dilated small bowel shown and no mass or diverticulitis demonstrated. Stomach appears unremarkable as well. Impression: No bowel obstruction identified. Evidence of ileus with a prolonged 2 hour transit time to the ileostomy. PROCEDURE INTERPRETED AT [facility] DEPARTMENT OF RADIOLOGY Final Report Signed by: Feliciano Morgan M.D.
--- NOTE | 2016-11-12 14:07 | General Surgery Progress Note ---
Assessment and Plan (1) Small bowel obstruction Status: Acute Assessment and plan: This appears to have resolved or might of been an ileus all along. We will continue NG tube for today and continue IV fluids. This could have been related to urinary tract infection which is currently being treated with antibiotics Current Visit: Yes (2) UTI (urinary tract infection) Status: Acute Assessment and plan: Follow-up final cultures Post void residual to make sure the patient is not retaining urine that could contribute to her urinary tract infection. Current Visit: Yes Subjective Patient reports: Present: no new complaints, feels better, pain is less, afebrile. Absent: nausea, vomiting Narrative: Small bowel series today shows delayed transit through the small bowel but no evidence of obstruction. The contrast reaches the ileostomy pouch. Urinary cultures to grow gram-negative rods greater than 100,000. Patient has no NG tube output. Vital signs are normal Exam - Constitutional Vitals: Period Temp Pulse Resp BP Sys/[place] Pulse Ox Last 24 Hr 96.0 F-98.2 F 75-90 16-22 98-118/60-87 98-100 General appearance: no acute distress, over weight - Head Head exam: Present: normal inspection, normocephalic - Eye Eye exam: Present: EOMI. Absent: scleral icterus Pupils: Present: MARANDA - ENT ENT exam: Present: normal exam Mouth exam: Present: normal external inspection, normal voice - Neck Neck exam: Present: normal inspection, trachea midline - Respiratory Respiratory exam: Present: clear to auscultation bilaterally. Absent: accessory muscle use, chest wall tenderness - Cardiovascular Cardiovascular exam: Present: RRR. Absent: systolic murmur, tachycardia - GI/Abdominal GI/Abdominal exam: Present: distended, hypoactive bowel sounds, soft. Absent: hernia, tenderness, rebound - Extremities Exam Extremities exam: Present: normal inspection, normal capillary refill - Back Exam Back exam: Present: normal inspection - Neurological Exam Neurological exam: Present: alert, oriented X3 Speech: Present: normal - Skin Skin exam: Present: normal color, warm Results - Labs CBC & BMP: 11/11/16 18:39 11/11/16 18:39 - Diagnostic Findings Procedure: X-ray: image reviewed by me, report reviewed by me (ileus)
[2016-11-12] MEDS: ARIPiprazole 5 MG TABLET PO SCH (16:01)
[2016-11-13] MEDS: DEXTROSE 5% NACL 0.45% 1,000 ML IV SCH ×4 (00:10→19:28)
[2016-11-13 05:38] LABS: Basophils % 0.2 % (0.0-0.8); Eosinophils # 0.1 10*3/uL (0.0-0.87); Eosinophils % 1.3 % (0.00-10.9); Hematocrit 31.4 VOL% (35.7-47.0); Hemoglobin 9.7 GM/DL (12.0-16.0); Immature Granulocytes % 0.5 %; Immature Granulocytes Absolute 0.03 #; Lymphocytes % 16.3 % (21.3-54.2); Mean Corpuscular HGB Conc 30.9 GM/DL (32-36); Mean Corpuscular Hemoglobin 26 PG (27-34); Mean Corpuscular Volume 83.3 FL (87-102); Mean Platelet Volume 9.2 FL (9.6-12.0); Monocytes # 0.7 10*3/uL (0.11-0.8); Monocytes % 10.6 % (1.7-12.7); Neutrophils # 4.4 10*3/uL (1.4-7.4); Neutrophils % 71.1 % (38.7-73.9); Platelet Count 150 T/CUMM (130-400); Red Blood Count 3.77 MC/CUMM (3.8-5.5); Red Cell Distribution Width 14.6 % (9.3-17.3); White Blood Count 6.1 T/CUMM (4-12)
[2016-11-13 06:07] LABS: Calcium 8.3 MG/DL (8.5-10.1); Magnesium 1.8 MG/DL (1.8-2.4)
[2016-11-13] MEDS: cefOXitin 1,000 MG in SODIUM CHLORIDE 0.9% 100 ML IV SCH (07:15)
[2016-11-13] MEDS: CALCIUM (CARBONATE)/VITAMIN D 500 MG-200 UNIT TABLET PO SCH ×2 (07:15→17:31)
--- NOTE | 2016-11-13 08:50 | General Surgery Progress Note ---
Assessment and Plan (1) Small bowel obstruction Status: Acute Assessment and plan: This turned out to be an ileus. This is likely related to urinary tract infection and appears to be improved. Remove NG tube today and start liquid diet. Advance diet as tolerated over the weekend and discharge planning Current Visit: Yes (2) UTI (urinary tract infection) Status: Acute Assessment and plan: Change to IV ciprofloxacin based on prior Klebsiella urinary tract sensitivities. Continue IV antibiotics until tolerating p.o. patient had a postvoid residual of 113 cc yesterday. We will continue to monitor her progress here clincally. Current Visit: Yes Subjective Patient reports: Present: no new complaints, feels better, afebrile. Absent: nausea, vomiting Narrative: Minimal NG tube output. Gastrografin small bowel series yesterday showed no obstruction. This looks more like an ileus from urinary tract infection. Exam - Constitutional Vitals: Period Temp Pulse Resp BP Sys/[place] Pulse Ox Last 24 Hr 97.0 F-99.8 F 84-105 17-18 94-113/53-64 94-98 General appearance: no acute distress, over weight - Head Head exam: Present: normal inspection, normocephalic - Eye Eye exam: Present: EOMI. Absent: scleral icterus Pupils: Present: MARANDA - ENT ENT exam: Present: normal exam Mouth exam: Present: normal external inspection, normal voice - Neck Neck exam: Present: normal inspection, trachea midline - Respiratory Respiratory exam: Present: clear to auscultation bilaterally. Absent: accessory muscle use, chest wall tenderness - Cardiovascular Cardiovascular exam: Present: RRR. Absent: systolic murmur, tachycardia - GI/Abdominal GI/Abdominal exam: Present: hypoactive bowel sounds, soft, other (Ostomy is pink and patent and productive of green enteric contents). Absent: tenderness, rebound - Extremities Exam Extremities exam: Present: normal inspection, normal capillary refill - Back Exam Back exam: Present: normal inspection - Neurological Exam Neurological exam: Present: alert Speech: Present: normal - Skin Skin exam: Present: normal color, warm Results - Labs CBC & BMP: 11/13/16 04:21 11/13/16 04:21
[2016-11-13] MEDS: PANTOPRAZOLE 40 MG TABLET PO SCH (08:53)
[2016-11-13] MEDS: ASPIRIN EC 325 MG TABLET PO SCH (08:53)
[2016-11-13] MEDS: buPROPion SR 150 MG TABLET PO SCH (08:53)
[2016-11-13] MEDS: CHOLECALCIFEROL 1,000 UNIT TABLET PO SCH (08:53)
[2016-11-13] MEDS: BISOPROLOL 5 MG TABLET PO SCH (08:53)
[2016-11-13] MEDS: COLESEVELAM 625 MG TABLET PO SCH ×2 (08:53→21:54)
[2016-11-13] MEDS: LORATADINE 10 MG TABLET PO SCH (08:53)
[2016-11-13] MEDS: FLUTICASONE 50 MCG NASAL SPRAY 16 GM BOTTLE BOTH NARES SCH ×2 (09:01→21:55)
[2016-11-13] MEDS: PANTOPRAZOLE 40 MG VIAL IV SCH (09:01)
[2016-11-13] MEDS: LATANOPROST 0.005% OPH SOLN 2.5 ML BOTTLE BOTH EYES SCH (09:02)
[2016-11-13] MEDS: CIPROFLOXACIN INJ 400 MG in PREMIX 1 EACH IV SCH ×2 (09:10→21:52)
[2016-11-13] MEDS: ARIPiprazole 5 MG TABLET PO SCH (17:31)
[2016-11-14] MEDS: DEXTROSE 5% NACL 0.45% 1,000 ML IV SCH ×2 (05:20→14:28)
[2016-11-14] MEDS: CALCIUM (CARBONATE)/VITAMIN D 500 MG-200 UNIT TABLET PO SCH ×2 (06:27→16:44)
--- NOTE | 2016-11-14 08:28 | General Surgery Progress Note ---
Assessment and Plan - Time spent with patient Time spent with patient: Less than 30 minutes (1) Small bowel obstruction Status: Acute Assessment and plan: This appears to be resolved. This may have simply been an ileus from her urinary tract infection. She appears that she is much improved. Current Visit: Yes Subjective Patient reports: Present: feels better, bowel movement. Absent: still having pain Exam - Constitutional Vitals: Period Temp Pulse Resp BP Sys/[place] Pulse Ox Last 24 Hr 98.0 F-98.9 F 83-99 16-20 90-116/54-64 93-100 General appearance: no acute distress - Respiratory Respiratory exam: Absent: accessory muscle use - GI/Abdominal GI/Abdominal exam: Present: soft. Absent: distended, tenderness Results - Labs CBC & BMP: 11/13/16 04:21 11/13/16 04:21 Lab Results: I have reviewed the past 24 hour labs
[2016-11-14] MEDS: COLESEVELAM 625 MG TABLET PO SCH ×2 (09:36→21:07)
[2016-11-14] MEDS: ASPIRIN EC 325 MG TABLET PO SCH (09:36)
[2016-11-14] MEDS: BISOPROLOL 5 MG TABLET PO SCH (09:36)
[2016-11-14] MEDS: PANTOPRAZOLE 40 MG TABLET PO SCH (09:36)
[2016-11-14] MEDS: LORATADINE 10 MG TABLET PO SCH (09:36)
[2016-11-14] MEDS: buPROPion SR 150 MG TABLET PO SCH (09:36)
[2016-11-14] MEDS: CHOLECALCIFEROL 1,000 UNIT TABLET PO SCH (09:36)
[2016-11-14] MEDS: LATANOPROST 0.005% OPH SOLN 2.5 ML BOTTLE BOTH EYES SCH (09:37)
[2016-11-14] MEDS: FLUTICASONE 50 MCG NASAL SPRAY 16 GM BOTTLE BOTH NARES SCH ×2 (09:37→21:08)
[2016-11-14] MEDS: CIPROFLOXACIN INJ 400 MG in PREMIX 1 EACH IV SCH ×2 (09:38→21:09)
[2016-11-14] MEDS: PANTOPRAZOLE 40 MG VIAL IV SCH (10:08)
[2016-11-14] MEDS: ONDANSETRON 4 MG/2 ML VIAL IV PRN (10:47)
[2016-11-14] MEDS: ARIPiprazole 5 MG TABLET PO SCH (16:44)
[2016-11-15] MEDS: DEXTROSE 5% NACL 0.45% 1,000 ML IV SCH ×4 (02:42→19:16)
[2016-11-15] MEDS: CALCIUM (CARBONATE)/VITAMIN D 500 MG-200 UNIT TABLET PO SCH ×2 (06:40→17:40)
[2016-11-15] MEDS: CIPROFLOXACIN INJ 400 MG in PREMIX 1 EACH IV SCH ×2 (08:02→21:09)
[2016-11-15] MEDS: BISOPROLOL 5 MG TABLET PO SCH (08:03)
[2016-11-15] MEDS: buPROPion SR 150 MG TABLET PO SCH (08:03)
[2016-11-15] MEDS: LORATADINE 10 MG TABLET PO SCH (08:03)
[2016-11-15] MEDS: COLESEVELAM 625 MG TABLET PO SCH ×2 (08:03→21:08)
[2016-11-15] MEDS: CHOLECALCIFEROL 1,000 UNIT TABLET PO SCH (08:03)
[2016-11-15] MEDS: ASPIRIN EC 325 MG TABLET PO SCH (08:04)
[2016-11-15] MEDS: LATANOPROST 0.005% OPH SOLN 2.5 ML BOTTLE BOTH EYES SCH (08:04)
[2016-11-15] MEDS: FLUTICASONE 50 MCG NASAL SPRAY 16 GM BOTTLE BOTH NARES SCH ×2 (08:04→21:09)
[2016-11-15] MEDS: PANTOPRAZOLE 40 MG VIAL IV SCH (08:04)
[2016-11-15] MEDS: PANTOPRAZOLE 40 MG TABLET PO SCH (08:04)
--- NOTE | 2016-11-15 10:27 | General Surgery Progress Note ---
Assessment and Plan - Time spent with patient Time spent with patient: Less than 30 minutes (1) Small bowel obstruction Status: Acute Assessment and plan: This appears to be resolved. This may have simply been an ileus from her urinary tract infection. She appears that she is much improved. 11/15: She is not having abdominal pain and has a nontender abdomen this morning. Her bowel function is returning. Current Visit: Yes Subjective Patient reports: Present: feels better. Absent: still having pain, nausea, vomiting, fever Exam - Constitutional Vitals: Period Temp Pulse Resp BP Sys/[place] Pulse Ox Last 24 Hr 97.8 F-98.6 F 76-91 18-20 89-125/53-79 95-99 General appearance: no acute distress - Respiratory Respiratory exam: Absent: accessory muscle use - GI/Abdominal GI/Abdominal exam: Present: soft. Absent: distended, tenderness Results - Labs CBC & BMP: 11/13/16 04:21 11/13/16 04:21
[2016-11-15] MEDS: ARIPiprazole 5 MG TABLET PO SCH (17:40)
[2016-11-16] MEDS: DEXTROSE 5% NACL 0.45% 1,000 ML IV SCH (06:03)
[2016-11-16] MEDS: CALCIUM (CARBONATE)/VITAMIN D 500 MG-200 UNIT TABLET PO SCH (06:03)
--- NOTE | 2016-11-16 08:56 | Discharge Summary ---
Hospital Course - Hospital Course Hospital Course: This patient was admitted with an ileus related to urinary tract infection. Her ileus resolved and her urinary tract infection and the growing Enterobacter sensitive to ciprofloxacin. She was placed on oral antibiotic regimen and discharged back to her long term. While she was in the hospital we arrange for follow-up with Dr. Castro in [place] for pelvic mass and elevated CA 125. Diagnosis - Discharge Diagnosis (1) Small bowel obstruction Status: Acute (2) UTI (urinary tract infection) Status: Acute Discharge Plan - Discharge Data Disposition: Disch To Home/Self Care Condition at Discharge: Stable Discharge Diet: advance to your usual diet Activity: resume usual activities as tolerated Hygiene: may shower Weight Bearing at Discharge: weight bear as tolerated Driving: other (patient not able to drive) Contact your physician if you experience:: fever over 101, Difficulty voiding, Redness or swelling, Nausea/Vomiting - Discharge Medications New Ciprofloxacin Tab [Cipro Tab] 500 mg PO BID #10 tablet Loratadine Tab [Claritin Tab] 10 mg PO DAILY tablet Pantoprazole Tab [Protonix Tab] 40 mg PO DAILY tablet Continue Cholecalciferol (Vitamin D3) [Vitamin D3] 5,000 unit PO QAM Colesevelam [Welchol] 625 mg PO BID Latanoprost [Xalatan] 1 drop BOTH EYES QAM buPROPion HCl [Bupropion HCl Sr] 150 mg PO QAM Calcium (Carb)/Vit D 500-200 [Oscal 500 + D] 1 tablet PO BID@0645,1700 Bisoprolol Fumarate 5 mg PO QAM Fluticasone 50 Mcg Nasal [place] [Flonase Nasal [place]] 1 spray BOTH NARES BID PRN PRN Reason: Allergy Symptoms Aspirin EC Tab 325 mg PO QAM ARIPiprazole [Abilify] 5 mg PO DAILY@1700 Pantoprazole Tab [Protonix Tab] 40 mg PO QAM Loratadine Tab [Claritin Tab] 10 mg PO DAILY PRN PRN Reason: Allergy Symptoms - Follow Up or Referral Follow Up: Travis Lee MD [Physician] - 1 Month - Forms/Instructions Exam - Constitutional Vitals: Period Temp Pulse Resp BP Sys/[place] Pulse Ox Last 24 Hr 97.5 F-98.3 F 74-80 16-18 95-120/53-70 95-100 General appearance: no acute distress, over weight - Head Head exam: Present: normal inspection, normocephalic - Eye Eye exam: Present: EOMI Pupils: Present: MARANDA - ENT ENT exam: Present: normal exam - Neck Neck exam: Present: normal inspection - Respiratory Respiratory exam: Present: clear to auscultation bilaterally. Absent: accessory muscle use, chest wall tenderness - Cardiovascular Cardiovascular exam: Present: regular rate and rhythm. Absent: systolic murmur , tachycardia - GI/Abdominal GI/Abdominal exam: Present: normal bowel sounds, soft. Absent: tenderness, rebound - Extremities Exam Extremities exam: Present: normal inspection, normal capillary refill - Back Exam Back exam: Present: normal inspection - Neurological Exam Neurological exam: Present: alert, oriented X3 - Psychiatric Psychiatric exam: Present: normal affect, normal mood - Skin Skin exam: Present: normal color, warm DS: Provider Date of admission: 11/11/16 19:20 Primary care physician: . No PCP Attending physician on admission: Travis Lee MD Discharging clinician: Travis Lee MD Expected date of discharge: 11/16/16
[2016-11-16] MEDS: LATANOPROST 0.005% OPH SOLN 2.5 ML BOTTLE BOTH EYES SCH (10:09)
[2016-11-16] MEDS: CIPROFLOXACIN INJ 400 MG in PREMIX 1 EACH IV SCH (10:10)
[2016-11-16] MEDS: PANTOPRAZOLE 40 MG VIAL IV SCH (10:14)
[2016-11-16] MEDS: FLUTICASONE 50 MCG NASAL SPRAY 16 GM BOTTLE BOTH NARES SCH (10:14)
[2016-11-16] MEDS: COLESEVELAM 625 MG TABLET PO SCH (10:26)
[2016-11-16] MEDS: CHOLECALCIFEROL 1,000 UNIT TABLET PO SCH (10:26)
[2016-11-16] MEDS: LORATADINE 10 MG TABLET PO SCH (10:27)
[2016-11-16] MEDS: BISOPROLOL 5 MG TABLET PO SCH (10:27)
[2016-11-16] MEDS: buPROPion SR 150 MG TABLET PO SCH (10:28)
[2016-11-16] MEDS: ASPIRIN EC 325 MG TABLET PO SCH (10:28)
[2016-11-16] MEDS: PANTOPRAZOLE 40 MG TABLET PO SCH (10:29)
[2016-11-16 11:30] VITALS: BP 105/59
== END 2016-11-16 14:00 | disposition home or self-care (01) | DRG 389 ==
LOC: N.ED 18:04 → N.EDINP 19:20 → N.3E 20:21
PROVIDERS: ADMIT Surgery; ATTEND Surgery